=== PATIENT | female | born 1985 | race Caucasian/White ===

== ENCOUNTER 2019-10-11 12:53 | Outpatient (RCR) | payer OTHER, SELFPAY ==
[2019-10-11 14:26] LABS: Hemoglobin 11.4 g/dL (12.0-15.0)
[2019-10-11 14:38] LABS: Glucose 1 Hour PP 50gm Dose 138 mg/dL
[2019-10-11 15:18] LABS: HIV 1/2 Ab P24 Ag Result Negative (Negative)
[2019-10-11 15:24] LABS: Vitamin D 25 Hydroxy 32.6 ng/mL
[2019-10-12] MEDS: RHO(D) IMMUNE GLOBULIN 300 MCG SYRINGE IM (10:30)
== END 2020-01-09 23:59 | disposition home or self-care (01) ==
LOC: ANHLAB 12:53
PROVIDERS: Visit Provider Nurse Practitioner
DX: Z36.89 Encounter for other specified antenatal screening (principal); Z29.13 Encounter for prophylactic Rho(D) immune globulin; O36.0920 Maternal care for other rhesus isoimmunization, second trimester, not applicable or unspecified; Z3A.00 Weeks of gestation of pregnancy not specified
CPT/HCPCS: 36415; 82306; 82947; 85014; 85018; 86703; 90384; 96372; G0432; J2790

== ENCOUNTER 2019-10-31 07:09 | Outpatient (CLI) | payer OTHER, SELFPAY ==
[2019-10-31 08:02] LABS: Glucose Fasting Gestational 86 mg/dL (>/=95)
[2019-10-31 09:28] LABS: Glucose 1 Hour Gest 175 mg/dL (>/=180)
[2019-10-31 10:20] LABS: Glucose 2 Hour Gest 158 mg/dL (>/= 155)
[2019-10-31 11:36] LABS: Glucose 3 Hour Gest 64 mg/dL (>/=140)
== END 2019-10-31 07:10 | disposition home or self-care (01) ==
PROVIDERS: Visit Provider Obstetrics & Gynecology
DX: O99.810 Abnormal glucose complicating pregnancy (principal); Z3A.00 Weeks of gestation of pregnancy not specified
CPT/HCPCS: 36415; 82951; 82952

== ENCOUNTER 2019-11-06 09:32 | Emergency (ER) | payer OTHER, SELFPAY ==
[2019-11-06 09:43] VITALS: BP 118/65; PULSE 99; RESP 20; TEMP 37.1; O2SAT 98
--- NOTE | 2019-11-06 10:03 | ED.URI ---
HPI - URI/Sore Throat General Chief Complaint: Upper Respiratory Infection Stated Complaint: cough/cold Time Seen by Provider: 11/06/19 09:33 Source: patient Mode of arrival: ambulatory Limitations: no limitations History of Present Illness HPI Narrative: A 33 y/o female presents to the ED with c/o flu symptoms. Pt states that on 11/04/19 she started to have a fever and cough. She notes that her daughter was diagnosed with Influenza 2 weeks ago and last week her son had similar symptoms but she never had him tested. Pt reports rhinorrhea, sore throat, body aches, SOB, nausea, and decreased food and liquid intake, but denies vomiting, vaginal bleeding, and vaginal discharge. Her fever was 100.8F degrees this morning and Tylenol does not alleviate her symptoms. She is currently and called her [employer]'s office today and the staff advised the patient to be evaluated in the ED. MD elicited complaint: other (Flu symptoms) Onset (ago): day(s) (2) Consistency: constant Relieving factors: nothing Context: sick contacts Associated symptoms: fever, rhinorrhea, sore throat, cough, shortness of breath, nausea and other (Body aches, decreased food and liquid intake) Treatments prior to arrival: acetaminophen Related Data Home Medications Medication Instructions Recorded Confirmed 11/06/19 aspirin [Aspirin Childrens] 11/06/19 cholecalciferol (vitamin D3) unit PO 11/06/19 Allergies Allergy/AdvReac Type Severity Reaction Status Date / Time No Known Allergies Allergy Verified 11/06/19 09:59 Review of Systems Review of Systems: All systems reviewed & are unremarkable except as noted in HPI and below Constitutional: Constitutional: Reports body ache(s), Reports fever(s) and Reports other (Decreased food and liquid intake) ENT: Reports nasal discharge and Reports sore throat Respiratory: Respiratory: Reports cough and Reports dyspnea Gastrointestinal: Gastrointestinal: Reports nausea and Denies vomiting Genitourinary: Genitourinary: Denies abnormal vaginal bleeding and Denies vaginal discharge [facility] Past Medical History Medical History (Updated 11/06/19 @ 10:39 by Arnaldo Alonso MD) Gestational diabetes Surgical History Surgical History (Updated 11/06/19 @ 10:08 by Kenia Swann) No pertinent past surgical history Social History Social History (Updated 11/06/19 @ 10:09 by Kenia Amador Smoking status: Never smoker Alcohol intake: never Substance use: never Gender identity (if verbalized by the patient): Female Exam Const: General: healthy appearing, no acute distress, well developed and alert Orientation/consciousness: patient oriented x3 Limitations: no limitations HENMT: Head: normocephalic and atraumatic Mouth: Yes moist mucous membranes Chest: Chest palpation & inspection: normal inspection of the chest and no tenderness Resp: Effort & Inspection: normal respiratory effort and able to speak in complete sentences Auscultation: clear to auscultation bilaterally Cardio: Rate: regular rate Rhythm: regular rhythm GI: Other: Gravid with palpable movement, nontender. Neuro: General: patient oriented x3 Speech: normal speech Course Course Emergency Course: IVF and acetaminophen here. D/c with antiemetics and tamiflu. Vital Signs Vital signs: Vital Signs Temperature 98.8 F 11/06/19 09:43 Pulse Rate 99 11/06/19 09:43 Respiratory Rate 20 11/06/19 09:43 Blood Pressure 118/65 11/06/19 09:43 Pulse Oximetry 98 11/06/19 09:43 Temperature 98.8 F 11/06/19 09:43 Pulse Rate 94 11/06/19 11:39 Respiratory Rate 20 11/06/19 11:39 Blood Pressure 109/62 11/06/19 11:39 Pulse Oximetry 98 11/06/19 11:39 MDM - URI/Sore Throat Lab Data Labs: Lab Results 11/06/19 Range/Units 10:48 POC Capillary Glucose 77 (65-105) mg/dl Influenza A Screen Negative Reference Range: Negative Influenza B Screen
[2019-11-06] MEDS: ACETAMINOPHEN 500 MG TABLET 1000 MG PO (10:41)
[2019-11-06] MEDS: SODIUM CHLORIDE 0.9% IV 1,000 ML 999 ML IV CONT (10:42)
[2019-11-06 10:50] LABS: Glucose Point of Care 77 (65-105)
[2019-11-06 10:53] VITALS: O2SAT 98
[2019-11-06 11:39] VITALS: BP 109/62; PULSE 94; RESP 20; O2SAT 98
== END 2019-11-06 11:42 | disposition home or self-care (01) ==
PROVIDERS: Emergency Provider Emergency Medicine
DX: J10.1 Influenza due to other identified influenza virus with other respiratory manifestations (principal)
CPT/HCPCS: 87804; 99283; A9270; J7030

== ENCOUNTER 2019-12-28 05:00 | Inpatient (IN) | payer OTHER, SELFPAY ==
[2019-12-28] VITALS (67 sets, daily range): BP systolic 71–120; BP diastolic 32–75; PULSE 45–87; RESP 16; TEMP 36.4–37.2; O2SAT 98–100; BMI 29.7
--- NOTE | 2019-12-28 05:00 | LDADM ---
This patient, Anahi Rankin, was admitted to Labor/Delivery/Recovery 103 on 12/28/19 at 05:00. Plans for labor, pain management and were discussed with patient. Patient/family oriented to hospital policies and general routines including ID bracelet, bed and alarms, visiting hours, pain management, procedures, bathroom and other care routines, personal items, smoking policy, room service/diet and guest tray routines, infant security routines, and visiting hours. Patient/Family are encouraged to report perceived risks to care and to ask questions if they do not understand what they are told or what they should do. See OBIX for further documentation.
[2019-12-28 05:38] LABS: Glucose Point of Care 117 (65-105)
[2019-12-28 05:43] LABS: Eosinophils Absolute Auto 0.1 K/mm3 (0-0.3); Hematocrit 35.8 % (37.0-47.0); Hemoglobin 11.8 g/dL (12.0-15.0); Immature Granulocyte Absolute 0.03 K/mm3 (0.00-0.031); Immature Granulocyte Percent A 0.4 % (0-0.5); Lymphocytes Absolute Auto 1.73 K/mm3 (0.9-3.2); Lymphocytes Percent Auto 24.5 % (18.3-44.2); Mean Platelet Volume 10.4 fl (7.4-10.4); Monocytes Absolute Auto 0.4 K/mm3 (0.1-0.6); Monocytes Percent Auto 5.9 % (2.6-8.5); Neutrophils Absolute Auto 4.8 K/mm3 (1.3-6.7); Neutrophils Percent Auto 68.2 % (45.5-73.1); Platelet Count Result 174 k/mm3 (150-375); Red Blood Count 3.81 M/mm3 (4.2-5.4); Red Cell Distribution Width 12.7 % (11.5-14.5); White Blood Count 7.1 K/mm3 (4.5-10.0)
[2019-12-28] MEDS: AMPICILLIN 2 GM/NS 100 ML 2 GM/100 ML BAG IVPB (05:47)
[2019-12-28] MEDS: OXYTOCIN 30 UNITS/NS 500 ML 30 UNITS/500 ML BAG IV CONT (05:47)
[2019-12-28] MEDS: LACTATED RINGERS 1,000 ML 125 ML IV CONT ×2 (05:48→08:52)
[2019-12-28] MEDS: AMPICILLIN 1 GM/NS 50 ML 1 GM/50 ML BAG IVPB (09:44)
[2019-12-28 10:48] LABS: Glucose Point of Care 62 (65-105)
--- NOTE | 2019-12-28 12:17 | PM.OBPRVD ---
OB - Delivery Note Procedure Delivery date: 12/28/19 Procedure: events: Gestational Diabetes Intrapartal events: None Induction method: AROM and per pitocin protocol Delivery monitor: external FHT and external uterine Route of delivery: Laceration description: None Specimen: Yes (placenta) Estimated blood loss (mL): 150 Anesthesia type: Epidural Disposition: floor [place] Baby Weeks of gestation at delivery: 39 Infant gender: Male presentation: vertex Placenta delivery description: Spontaneous cord vessel description: 3 Vessels score one minute: 9 score five minutes: 9
--- NOTE | 2019-12-28 12:18 | PM.OBDSVD ---
DS: Diagnosis Discharge Diagnosis (1) 39 weeks gestation of : Code(s): Z3A.39 - 39 weeks gestation of Status: Acute (2) GDM, class A1: Code(s): O24.410 - Gestational diabetes mellitus in , diet controlled Status: Acute (3) (normal spontaneous vaginal delivery): Code(s): O80 - Encounter for full-term uncomplicated delivery Status: Acute OB - DS: Summary OB Procedures : NST and Ultrasound OB Procedures Intrapartum: Spontaneous Vag Delivery OB Procedures: : None Peripartum Data Infant Delivery Method: Natural Vaginal Laceration description: None complications: none Status at Discharge Functional status at discharge: independent ambulation Overall status at discharge: patient is progressing back to baseline Time Spent with Patient Time attestation: Total time spent providing and/or coordinating discharge services: DS: Data Data Completed and Pending Labs on day of discharge: Labs from last 24 hours 12/28/19 12/28/19 12/28/19 10:45 05:34 05:34 WBC RBC Hgb Hct MCV MCH MCHC RDW Plt Count MPV Immature Gran % (Auto) Neut % (Auto) Lymph % (Auto) [place] % (Auto) Eos % (Auto) Baso % (Auto) Lymph # (Auto) [place] # (Auto) Eos # (Auto) Baso # (Auto) Abs Immat Gran (auto) Absolute Neuts (auto) Absolute Nucleated RBC Nucleated RBC % POC Capillary Glucose 62 L RPR Pending Blood Type A Negative Antibody Screen Negative 12/28/19 12/28/19 05:34 05:32 WBC 7.1 RBC 3.81 L Hgb 11.8 L Hct 35.8 L MCV 94.0 MCH 31.0 MCHC 33.0 RDW 12.7 Plt Count 174 MPV 10.4 Immature Gran % (Auto) 0.4 Neut % (Auto) 68.2 Lymph % (Auto) 24.5 [place] % (Auto) 5.9 Eos % (Auto) 1.0 Baso % (Auto) 0.0 L Lymph # (Auto) 1.73 [place] # (Auto) 0.4 Eos # (Auto) 0.1 Baso # (Auto) 0.0 Abs Immat Gran (auto) 0.03 Absolute Neuts (auto) 4.8 Absolute Nucleated RBC 0.0 Nucleated RBC % 0.0 POC Capillary Glucose 117 H RPR Blood Type Antibody Screen Discharge Plan Discharge Attending physician on discharge: Sharon Johnson Discharging Clinician: Sharon Johnson Anticipated Discharge Date/Time: 12/30/19 07:19 Patient Disposition: Home, Self-Care Activity: pelvic rest Diet: regular Patient Instructions: Antibiotic Form Stand Alone Forms: General Discharge Information Follow-up/Referrals: Sharon Johnson MD [Physician] - 6 Weeks Discharge Medications: Continued cholecalciferol (vitamin D3) 5,000 unit Tablet,Disintegrating 5,000 unit PO WEEKLY RF: 0 1 tablet PO DAILY RF: 0 Discontinued aspirin [Aspirin Childrens] 81 mg Tablet,Chewable 1 tablet PO DAILY RF: 0 ondansetron 4 mg tablet,disintegrating 4 mg PO Q6H PRN (Reason: nausea and vomiting) Qty: 10 RF: 0 Date of admission: 12/28/19 05:00 Primary Care Provider: UNKNOWN,DOCTOR Admitting Provider: Sharon Johnson Attending physician on admission: Sharon Johnson Condition: Stable
--- NOTE | 2019-12-28 12:21 | WPDOBADMIT ---
Obstetrics - Admit Note Admission Note: record reviewed. No pertinent additions to the history and/or any subsequent changes in the physical findings that are not consistent with the expected course of the were found. Additions to the history and/or subsequent changes in the physical findings follow. Here for MIL for GDMA1. AROM with clear fluid from Dr. Dumont at that time she was /-2. complete on my arrival
[2019-12-28] MEDS: BENZOCAINE 20% AER SPR (*SP) 56 GM CAN 1 SPRAY TOPICAL (13:07)
[2019-12-28 13:36] LABS: Rapid Plasma Reagin Non-Reactive (NonReactive)
--- NOTE | 2019-12-28 15:10 | PC.NURSE ---
Patient transferred to post room #289 per wheelchair from labor and delivery. Support person present. Oriented to unit, room, information board, rooming in, admission packet and security measures. Patient verbalizes understanding.
[2019-12-28] MEDS: DOCUSATE SODIUM 100 MG CAPSULE PO (16:37)
[2019-12-28] MEDS: IBUPROFEN 600 MG TABLET PO ×2 (16:37→23:35)
--- NOTE | 2019-12-28 20:00 | PC.NURSE ---
Patient viewed the discharge video Mother & Baby Care, The First Two Weeks . Patient was given the opportunity and encouraged to ask questions. Patient verbalized understanding of information shared and has been given the mother/baby guide for home reference.
[2019-12-29] MEDS: IBUPROFEN 600 MG TABLET PO ×3 (04:55→19:37)
[2019-12-29 05:38] LABS: Hematocrit 30.9 % (37.0-47.0); Hemoglobin 9.9 g/dL (12.0-15.0)
[2019-12-29 08:00] VITALS: BP 100/63; PULSE 56; RESP 18; TEMP 36.5; O2SAT 100
[2019-12-29] MEDS: MULTIVIT/MIN/PREN/FOL AC/IRON TABLET 1 TAB PO (08:09)
[2019-12-29] MEDS: POLYSACCHARIDE IRON COMPLEX 150 MG CAPSULE PO ×2 (08:09→17:06)
[2019-12-29] MEDS: DOCUSATE SODIUM 100 MG CAPSULE PO ×2 (08:09→17:06)
[2019-12-29] MEDS: WITCH HAZEL 40 PADS 1 PAD TOPICAL (08:10)
[2019-12-29] MEDS: BENZOCAINE 20% AER SPR (*SP) 56 GM CAN 1 SPRAY TOPICAL (08:10)
--- NOTE | 2019-12-29 10:38 | P.PNOB_ITS ---
OB - PN: Subj Subjective Date/time seen: 12/29/19 10:38 Patient comments: no complaints baby status: doing well and nursing well OB - PN: Obj Data Labs CBC & Chem 7: 12/29/19 05:01 Labs: Laboratory Results - last 24 hr 12/28/19 12/28/19 12/29/19 05:34 10:45 05:01 Hgb 9.9 L Hct 30.9 L POC Capillary Glucose 62 L RPR Non-reactive OB - PN A/P Plan day: 1 Plan: routine care Comments: plans condoms until Mirena Time Spent With Patient Time: Total time spent is greater than 50% in coordination of care (as docume nted) at patient's floor/unit and/or counseling patient: Exam : Bimanual exam- vagina & uterus: other (Uterus firm, nt @U)
--- NOTE | 2019-12-29 13:55 | WPDANLDPN2 ---
Anes-Prog Note L&D Date/Time: 12/29/19 13:55 Comfortable throughout: labor and delivery Neuraxial method: epidural Epidural/Spinal procedure site: clean & non-tender Neuro status: Neuro function grossly intact. Cardiovascular status: normal Respiratory status: normal Airway patency: baseline Mental status: baseline Post-Op hydration status: normal Vital Signs: Last Vital Signs Temp 97.7 F 12/29/19 08:00 Pulse 56 L 12/29/19 08:00 Resp 18 12/29/19 08:00 BP 100/63 12/29/19 08:00 Pulse Ox 100 12/29/19 08:00 Patient feedback: Patient satisfied with anesthetic care.
[2019-12-29] MEDS: ACETAMINOPHEN 325 MG TABLET 650 MG PO (17:06)
[2019-12-29 19:30] VITALS: BP 111/67; PULSE 62; RESP 16; TEMP 36.9; O2SAT 100
[2019-12-30] MEDS: IBUPROFEN 600 MG TABLET PO ×2 (03:05→08:45)
[2019-12-30] MEDS: ACETAMINOPHEN 325 MG TABLET 650 MG PO ×2 (03:05→08:46)
[2019-12-30 07:13] VITALS: BP 93/63; PULSE 63; RESP 18; TEMP 36.6
--- NOTE | 2019-12-30 08:30 | PC.NURSE ---
Patient was given the opportunity to view the discharge video Mother & Baby Care, The First Two Weeks and to ask questions. Patient declined viewing the video and has been given the mother/baby guide for home reference.
[2019-12-30] MEDS: BENZOCAINE 20% AER SPR (*SP) 56 GM CAN 1 SPRAY TOPICAL (08:45)
[2019-12-30] MEDS: WITCH HAZEL 40 PADS 1 PAD TOPICAL (08:45)
[2019-12-30] MEDS: POLYSACCHARIDE IRON COMPLEX 150 MG CAPSULE PO (08:46)
[2019-12-30] MEDS: DOCUSATE SODIUM 100 MG CAPSULE PO (08:46)
[2019-12-30] MEDS: MULTIVIT/MIN/PREN/FOL AC/IRON TABLET 1 TAB PO (08:46)
--- NOTE | 2019-12-30 09:51 | PC.NURSE ---
Self care and infant care discharge instructions given including follow up visit date and time. Mother verbalized understanding. No questions or concerns verbalized. Very pleasant and cooperative. at side.
--- NOTE | 2019-12-30 12:39 | PM.OBPNVD ---
OB - PN: Subj Subjective Date/time seen: 12/30/19 12:39 Patient comments: no complaints baby status: doing well [place] feeding status: exclusively breast feeding OB - PN: Obj Data Labs CBC & Chem 7: 12/29/19 05:01 OB - PN A/P Plan day: 2 Plan: routine care and discharge home Comments: plans condoms until Mirena Time Spent With Patient Time: Total time spent is greater than 50% in coordination of care (as documented) at patient's floor/unit and/or counseling patient: Exam : Bimanual exam- vagina & uterus: other (Uterus firm, nt @U)
[2020-01-02 10:01] VITALS: BP 110/69; PULSE 63; RESP 16; TEMP 36.7; O2SAT 99
== END 2019-12-30 13:40 | disposition home or self-care (01) | DRG 807 ==
LOC: ANHLDR 12:20 → ANHOB2 15:38
PROVIDERS: Admitting Provider Obstetrics & Gynecology Gynecology; Visit Provider Obstetrics & Gynecology Gynecology
DX: O24.410 Gestational diabetes mellitus in pregnancy, diet controlled (principal); Z37.0 Single live birth; O99.824 Streptococcus B carrier state complicating childbirth; Z3A.39 39 weeks gestation of pregnancy
CPT/HCPCS: 36415; 85014; 85018; 85025; 86592; 86850; 86900; 86901; A9270; J0290; J2590; J2795; J7120

== ENCOUNTER 2024-02-28 14:07 | Outpatient (CLI) | payer OTHER, SELFPAY ==
--- NOTE | ~2024-02-28 | US_ITS ---
EXAMINATION: US OB transvaginal INDICATION: Viability, size greater than dates TECHNIQUE: Sonography of the pelvis was performed by transabdominal and transvaginal techniques. COMPARISON: None. RESULT: Uterus: 9.4 x 5.7 x 7.6 cm. Anteverted. Homogenous myometrium. Intrauterine gestational sac: Single present. Yolk sac: 0.6 cm. Embryo: Single present. [place] rump length: 1.89 cm, corresponding gestational age 8 weeks, 3 days. Gestational heart rate: present 164 bpm. Subgestational hematoma: Absent . Right ovary: Not visualized. No adnexal mass. Left ovary: Not visualized. No adnexal mass. Pelvis free fluid: None. IMPRESSION: Single, live intrauterine gestation. Estimated Gestational Age: 8 weeks, 3 days by crown rump length. RAYMOND by ultrasound 10/06/2024. Reviewed, dictated and finalized at location K. IMPRESSION: Single, live intrauterine gestation. Estimated Gestational Age: 8 weeks, 3 days by crown rump length. RAYMOND by ultras ound 10/06/2024.
== END 2024-02-28 14:08 ==
LOC: MICIMG 14:08
PROVIDERS: PCP Advanced Practice Midwife; Visit Provider Advanced Practice Midwife
DX: O36.80X0 Pregnancy with inconclusive fetal viability, not applicable or unspecified (principal)
CPT/HCPCS: 76817

== ENCOUNTER 2024-03-06 12:22 | Outpatient (RCR) | payer OTHER, SELFPAY ==
[2024-03-08] MEDS: RHO(D) IMMUNE GLOBULIN 300 MCG/2 ML SYRINGE IM (07:58)
== END 2024-06-04 23:59 | disposition home or self-care (01) ==
LOC: ANHLAB 12:22
PROVIDERS: PCP Advanced Practice Midwife; Visit Provider Obstetrics & Gynecology Gynecology
DX: Z29.13 Encounter for prophylactic Rho(D) immune globulin (principal); O36.0190 Maternal care for anti-D [Rh] antibodies, unspecified trimester, not applicable or unspecified; Z3A.00 Weeks of gestation of pregnancy not specified
CPT/HCPCS: 36415; 85461; 86850; 86900; 86901; 90384; 96372; J2790

== ENCOUNTER 2024-07-20 10:01 | Outpatient (CLI) | payer OTHER, SELFPAY ==
[2024-07-20 10:30] LABS: Glucose Fasting Gestational 84 mg/dL (>/=95)
[2024-07-20 11:58] LABS: Glucose 1 Hour Gest 212 mg/dL (>/=180)
[2024-07-20 13:11] LABS: Glucose 2 Hour Gest 201 mg/dL (>/= 155)
[2024-07-20 14:00] LABS: Glucose 3 Hour Gest 79 mg/dL (>/=140)
== END 2024-07-20 10:02 | disposition home or self-care (01) ==
LOC: ANHLAB 10:02
PROVIDERS: PCP Advanced Practice Midwife; Visit Provider Obstetrics & Gynecology Gynecology
DX: O99.810 Abnormal glucose complicating pregnancy (principal); Z3A.00 Weeks of gestation of pregnancy not specified
CPT/HCPCS: 36415; 82951; 82952

== ENCOUNTER 2024-07-20 13:46 | Outpatient (CLI) | payer OTHER, SELFPAY ==
--- NOTE | ~2024-07-20 | US_ITS ---
US OB follow up DATE: 07/20/2024 14:05 INDICATION: Size greater than dates. anatomy screen and gestational age assessment TECHNIQUE: Real-time imaging and Doppler analysis COMPARISON: 02/28/2024 obstetrical ultrasound; RAYMOND determined from that examination was 10/06/2024 FINDINGS: Live single intrauterine gestation, fetus in transverse lie, head to maternal left. F etal heart rate of 153 bpm. Right anterior placenta, lateral margin 7.7 cm above the internal os. Cervical length is 4.8 cm. Subjectively normal amount of anechoic fluid. Amniotic fluid index measures 12.5 cm. (5th percentile DEENA: 9.4 cm; 95th percentile: 22.8 cm) Biparietal diameter 8.02 cm; 32 weeks 1 day Head circumference 28.71 cm; 31 weeks 4 days Abdominal circumference 25.91 cm; 30 weeks] 5.63 cm; 29 weeks 4 days Composite age by Hadlock formula based upon the current biometrics would be 30 weeks 6 days +/- 2 wee ks 1 day with RAYMOND of 09/22/2024, compared to 10/06/2024 from the first trimester ultrasound estimate. (Third trimester ultrasound estimates of gestational age should not alter the bilateral carol first tr imester ultrasound estimate.) Estimated weight is 1531 +/- 230 g. IMPRESSION: Transverse lie Estimated weight is 1531 +/- 20 30 g Amniotic fluid index: 12.5 cm Reviewed, dictated and finalized at Location A. Reviewed, dictated and finalized at location A.
== END 2024-07-20 13:47 | disposition home or self-care (01) ==
LOC: MICIMG 13:46
PROVIDERS: PCP Advanced Practice Midwife; Visit Provider Advanced Practice Midwife
DX: O36.63X0 Maternal care for excessive fetal growth, third trimester, not applicable or unspecified (principal); Z3A.30 30 weeks gestation of pregnancy
CPT/HCPCS: 76816

== ENCOUNTER 2024-08-27 10:25 | Outpatient (CLI) | payer OTHER, SELFPAY ==
--- NOTE | ~2024-08-27 | US_ITS ---
EXAMINATION: US OB follow up DATE: 08/27/2024 10:54 INDICATION: Expected size greater than expected for estimated gestational age TECHNIQUE: Real-time ultrasound of the pelvis was performed. The interpreting radiologist was not pre sent for the study. COMPARISON: None. FINDINGS: There is a single living fetus in breech presentation. The placenta is anterior fundal and not low-l carroll. heart rate is 128 beats per minute (bpm). The amniotic fluid index is 9.3 cm, which is n ormal (5th%-95%: 8.1-24.8 cm at 34 weeks estimated gestational age). The following biometric data were obtained: BPD: 8.7 cm -> 34 weeks 6 days Head circumference: 31.3 cm -> 3 weeks 50 days Abdominal circumference: 31.0 cm -> 34 weeks 6 days Femur length: 6.6 cm -> 34 weeks 0 days These measurements are concordant. Head circumference to abdominal circumference ratio: 1.01 (normal range 0.9-1.11). Estimated weight: 2482 g (+/-) 372 g or 5 lbs. 8 oz. (+/-) 13 oz. IMPRESSION: 1. Single living fetus in breech presentation with heart rate of 128 bpm. 2. Normal amniotic fluid index of 9.3 cm. 3. Estimated weight is 56th percentile by Hadlock criteria when 10/06/2024 is used as the estima cris date of delivery (RAYMOND). Please correlate with clinical information or earlier ultrasounds for mos t accurate RAYMOND. Reviewed, dictated and finalized at location A. N BRAKER IMPRESSION: 1. Single living fetus in breech presentation with heart rate of 128 bpm. 2. Normal amniotic fluid index of 9.3 cm. 3. Estimated weight is 56th percentile by Hadlock criteria when 10/06/2024 is used as the estimated date of delivery (RAYMOND). Please correlate with clinica l information or earlier ultrasounds for most accurate RAYMOND.
== END 2024-08-27 10:26 | disposition home or self-care (01) ==
PROVIDERS: PCP Advanced Practice Midwife; Visit Provider Advanced Practice Midwife
DX: O36.63X0 Maternal care for excessive fetal growth, third trimester, not applicable or unspecified (principal); Z3A.00 Weeks of gestation of pregnancy not specified
CPT/HCPCS: 76816

== ENCOUNTER 2024-09-17 09:27 | Outpatient (CLI) | payer OTHER, SELFPAY ==
[2024-09-17] MEDS: TERBUTALINE SULFATE 1 MG/ML VIAL 0.25 MG SUB-Q (10:03)
[2024-09-17 10:16] VITALS: BP 118/75; PULSE 73
== END 2024-09-17 10:55 | disposition home or self-care (01) ==
LOC: ANHOBOP 09:54 → ANHOBPP 09:55
PROVIDERS: PCP Advanced Practice Midwife; Visit Provider Obstetrics & Gynecology Gynecology
DX: O32.1XX0 Maternal care for breech presentation, not applicable or unspecified (principal); Z3A.00 Weeks of gestation of pregnancy not specified
CPT/HCPCS: 59412; 99199; J3105

== ENCOUNTER 2024-09-24 19:36 | Observation (INO) | payer OTHER, SELFPAY ==
[2024-09-24 19:52] VITALS: BP 131/68; PULSE 81; BMI 33.4
--- NOTE | 2024-09-24 19:52 | OBADM ---
This patient, Anahi Rankin, admitted to the OB room OB Post 116 for observation. Patient/family oriented to hospital policies and general routines including ID bracelet, bed and alarms, visiting hours, pain management, procedures, bathroom and other care routines, personal items, smoking policy, room service/diet, and visiting hours. Patient/Family are encouraged to report perceived risks to care and to ask questions if they do not understand what they are told or what they should do.
[2024-09-24 20:00] VITALS: BP 118/69; PULSE 83; TEMP 36.6
[2024-09-24] MEDS: ONDANSETRON INJ 4 MG/2 ML VIAL IV PUSH (20:30)
[2024-09-24] MEDS: DEXTROSE 5%/LACTATED RINGERS 1,000 ML 999 ML IV CONT (20:31)
[2024-09-24] MEDS: LOPERAMIDE HCL 2 MG CAPSULE PO ×2 (20:32→21:29)
[2024-09-24 21:23] LABS: Add Urine Microscopic? YES; Appearance Urine Cloudy (Clear); Bacteria Urine Rare /hpf; Bilirubin Urine Negative (Negative); Blood Urine Negative (Negative); Color Urine Yellow (Yellow); Glucose Urine UA 3+ mg/dL (Negative); Ketones Urine 3+ mg/dL (Negative); Leukocyte Esterase Ur Negative LEU/UL (Negative); Nitrate Urine Negative (Negative); Protein Urine 1+ mg/dL (Negative); RBC Urine 0-2 /hpf (0-2); Specific Grav Ur 1.029 (1.001-1.035); Squamous Epithelial Cell Urine Moderate /hpf (Few); WBC Urine 0-5 /hpf (0-3); pH Urine 5.5 (5.0-9.0)
[2024-09-24] MEDS: LACTATED RINGERS 1,000 ML 150 ML IV CONT (21:27)
--- NOTE | 2024-09-27 03:24 | PM.OBTRLD ---
OB - Triage/Final Diagnosis Visit Information Reason for evaluation: threatened labor and other ( nausea and vomiting and diarrhea) Comments/Additional reasons for admission: I have assessed the risk for this patient, Anahi Berkley Chucho, and determined that she would benefit from observation care. Evaluation Laboratory results: Laboratory Tests 09/24/24 21:07 Urine Color Yellow Urine Appearance Cloudy H Urine pH 5.5 Ur Specific [place] 1.029 Urine Protein 1+ H Urine Glucose (UA) 3+ H Urine Ketones 3+ H Ur Blood (Man) Negative Urine Nitrate Negative Urine Bilirubin Negative Urine Urobilinogen 1.0 Leukocyte Esterase Rfl Negative Urine RBC 0-2 Urine WBC 0-5 Ur Squamous Epith Cells Moderate Urine Bacteria Rare Urine Casts 3-5
== END 2024-09-25 00:12 | disposition home or self-care (01) ==
PROVIDERS: Admitting Provider Obstetrics & Gynecology Gynecology; Visit Provider Obstetrics & Gynecology Gynecology
DX: O47.1 False labor at or after 37 completed weeks of gestation (principal); O21.2 Late vomiting of pregnancy; O26.893 Other specified pregnancy related conditions, third trimester; Z3A.38 38 weeks gestation of pregnancy
CPT/HCPCS: 81001; 96361; 96374; A9270; G0378; G0379; J2405; J7120; J7121

== ENCOUNTER 2024-09-29 18:24 | Observation (INO) | payer OTHER, SELFPAY ==
[2024-09-29 20:30] VITALS: BP 117/65; PULSE 60
[2024-09-29 20:44] VITALS: BMI 33.7
--- NOTE | 2024-09-29 20:45 | OBADM ---
This patient, Anahi Rankin, admitted to the OB room Labor/Delivery/Recovery 106 for observation. Patient/family oriented to hospital policies and general routines including ID bracelet, bed and alarms, visiting hours, pain management, procedures, bathroom and other care routines, personal items, smoking policy, room service/diet, and visiting hours. Patient/Family are encouraged to report perceived risks to care and to ask questions if they do not understand what they are told or what they should do.
--- NOTE | 2024-09-29 20:51 | PC.NURSE ---
Call recieved from Dr. Castilol 2042. Reported Pt c/o irregular ctx since 4 pm, pt history of version on 09/17, GDM and AMA. SVE, FHR, CTX and Vitals. Pt states she feels comfortable going home, scheduled induction on Tuesday. Order to discharge pt home undelivered.
--- NOTE | 2024-09-29 20:53 | PC.NURSE ---
Pt discharged home undelivered in stable condition per order from Dr. Castillo. Discharge instructions explained to pt and given, all questions and concerns answered. Pt ambulated out of unit with all belongings, S.O @ pt side.
--- NOTE | 2024-10-15 11:39 | PM.OBTRLD ---
OB - Triage/Final Diagnosis Visit Information Comments/Additional reasons for admission: I have assessed the risk for this patient, Anahi Rankin, and determined that she would benefit from observation care. Final Diagnosis (1) False labor: Code(s): O47.9 - False labor, unspecified Status: Acute
== END 2024-09-29 20:55 | disposition home or self-care (01) ==
PROVIDERS: Admitting Provider Obstetrics & Gynecology; Visit Provider Obstetrics & Gynecology
DX: O47.1 False labor at or after 37 completed weeks of gestation (principal); Z3A.38 38 weeks gestation of pregnancy
CPT/HCPCS: G0378; G0379

== ENCOUNTER 2024-10-01 05:56 | Inpatient (IN) | payer OTHER, SELFPAY ==
[2024-10-01] VITALS (88 sets, daily range): BP systolic 104–144; BP diastolic 49–83; PULSE 55–99; RESP 16; TEMP 36.2–36.8; O2SAT 97–100; BMI 33.7
[2024-10-01 06:51] LABS: Basophils Percent Auto 0.3 % (0.2-1.2); Eosinophils Percent Auto 0.7 % (0-4.4); Hematocrit 34.4 % (37.0-47.0); Hemoglobin 11.4 g/dL (12.0-15.0); Immature Granulocyte Absolute 0.02 K/mm3 (0.00-0.031); Immature Granulocyte Percent A 0.3 % (0-0.5); Lymphocytes Absolute Auto 1.61 K/mm3 (0.9-3.2); Lymphocytes Percent Auto 27.4 % (18.3-44.2); Mean Corpuscular HGB Conc 33.1 g/dl (32-36); Mean Corpuscular Hemoglobin 30.6 pg (26-34); Mean Corpuscular Volume 92.5 fl (80-100); Mean Platelet Volume 10.7 fl (7.4-10.4); Monocytes Absolute Auto 0.3 K/mm3 (0.1-0.6); Monocytes Percent Auto 5.5 % (2.6-8.5); Neutrophils Absolute Auto 3.9 K/mm3 (1.3-6.7); Neutrophils Percent Auto 65.8 % (45.5-73.1); Platelet Count Result 193 k/mm3 (150-375); Red Blood Count 3.72 M/mm3 (4.2-5.4); Red Cell Distribution Width 12.5 % (11.5-14.5); White Blood Count 5.9 K/mm3 (4.5-10.0)
--- NOTE | 2024-10-01 07:23 | P.PNAN_ITS ---
Anes - Eval Pre Procedure Procedure: labor epidural Date/Time: 10/01/24 07:23 Preop Diagnosis: labor pain Pre Op Diagnosis: Labor Patient Data Age: 38 Gender: F Height: Weight: Last Vital Signs Pulse 63 10/01/24 07:15 BP 115/66 10/01/24 07:15 Allergies Allergy/AdvReac Type Severity Reaction Status Date / Time No Known Allergies Allergy Verified 09/24/24 19:56 Home Medications ?Medication ?Instructions ?Recorded ?Confirmed ?Type 1 tablet PO DAILY 11/06/19 09/24/24 History cholecalciferol (vitamin D3) 125 3,000 unit PO DAILY 11/06/19 09/24/24 History mcg (5,000 unit) disintegrating tablet aspirin 81 mg capsule 81 mg PO DAILY 09/14/24 09/24/24 History ondansetron 4 mg disintegrating 4 mg PO Q6H PRN nausea and 09/24/24 Rx tablet vomiting #10 tabs Laboratory Tests 10/01/24 06:37 WBC 5.9 K/mm3 (4.5-10.0) RBC 3.72 L M/mm3 (4.2-5.4) Hgb 11.4 L g/dL (12.0-15.0) Hct 34.4 L % (37.0-47.0) MCV 92.5 fl (80-100) MCH 30.6 pg (26-34) MCHC 33.1 g/dl (32-36) RDW 12.5 % (11.5-14.5) Plt Count 193 k/mm3 (150-375) MPV 10.7 H fl (7.4-10.4) Immature Gran % (Auto) 0.3 % (0-0.5) Neut % (Auto) 65.8 % (45.5-73.1) Lymph % (Auto) 27.4 % (18.3-44.2) [place] % (Auto) 5.5 % (2.6-8.5) Eos % (Auto) 0.7 % (0-4.4) Baso % (Auto) 0.3 % (0.2-1.2) Lymph # (Auto) 1.61 K/mm3 (0.9-3.2) [place] # (Auto) 0.3 K/mm3 (0.1-0.6) Eos # (Auto) 0.0 K/mm3 (0-0.3) Baso # (Auto) 0.0 K/mm3 (0.0-0.1) Abs Immat Gran (auto) 0.02 K/mm3 (0.00-0.031) Absolute Neuts (auto) 3.9 K/mm3 (1.3-6.7) Absolute Nucleated RBC 0.000 K/mm3 (0.0-0.012) Nucleated RBC % 0.0 % (0.0-0.2) RPR Pending HIV 1&2 Ab/P24 Ag 4thGn Pending Patient hx anesthesia problems: none Family hx anesthesia problems: none Results Review: All pre-operative results and documents have been reviewed as part of the pre- operative evaluation. FORMERLY [facility], [facility] Past Medical History Medical History Gestational diabetes Surgical History Surgical History No pertinent past surgical history Family History Family History Mother Breast cancer Father Diabetes mellitus Social History Social History Smoking status: Never smoker Alcohol intake: never Substance use: never Gender identity (if verbalized by the patient): Female Spiritual care concerns: No Exam Day of Procedure 10/01/24 07:23 Patient weight: overweight Heart: regular rate and rhythm Lungs: clear to auscultation Airway: Mallampati scale class II Neurological: alert and oriented
[2024-10-01] MEDS: LACTATED RINGERS 1,000 ML 125 ML IV CONT (07:25)
[2024-10-01] MEDS: OXYTOCIN 30 UNITS/NS 500 ML 30 UNITS/500 ML BAG IV CONT (07:26)
--- NOTE | 2024-10-01 07:36 | LDADM ---
This patient, Anahi Rankin, was admitted to Labor/Delivery/Recovery 108 on 10/01/24 at 05:56. Plans for labor, pain management and were discussed with patient. Patient/family oriented to hospital policies and general routines including ID bracelet, bed and alarms, visiting hours, pain management, procedures, bathroom and other care routines, personal items, smoking policy, room service/diet and guest tray routines, security routines, and visiting hours. Patient/Family are encouraged to report perceived risks to care and to ask questions if they do not understand what they are told or what they should do. See OBIX for further documentation.
[2024-10-01 07:41] LABS: HIV 1/2 Ab P24 Ag Result Negative (Negative)
[2024-10-01 08:06] LABS: Glucose Point of Care 73 mg/dl (65-105)
--- NOTE | 2024-10-01 08:06 | WPDOBADMIT ---
Obstetrics - Admit Note Admission Note: record reviewed. No pertinent additions to the history and/or any subsequent changes in the physical findings that are not consistent with the expected course of the were found. Additions to the history and/or subsequent changes in the physical findings follow. Here with GDMA1 for MIL. s/p external version. Cervix 1-2/50/-2 anterior, Vertex. Plan pitocin. FHTs cat. I
[2024-10-01 08:27] LABS: Rapid Plasma Reagin Non-Reactive (NonReactive)
[2024-10-01 11:59] LABS: Glucose Point of Care 77 mg/dl (65-105)
[2024-10-01 14:13] LABS: Glucose Point of Care 61 mg/dl (65-105)
--- NOTE | 2024-10-01 15:17 | PM.OBPRVD ---
OB - Vaginal Delivery Note Procedure Delivery date: 10/01/24 Events: Breech Presentation (s/p external cephalic version at 36 wks) and Gestational Diabetes (GDMA1) Induction method: AROM and Per Pitocin Protocol Delivery monitor: External FHT and External Uterine Route of delivery: Episiotomy description: None Laceration Description: None Specimen: No Quantitative Blood Loss (ml): 50 Anesthesia type: Epidural Disposition: Floor Complications: No immediate complications Baby Date of : 10/01/24 Gestational Age by Date: 39 Infant gender: Female presentation: vertex position: Right Occiput Anterior Placenta delivery description: Spontaneous Cord Vessel Description: 3 Vessels and Delayed Cord Clamping score one minute: 8 score five minutes: 9
--- NOTE | 2024-10-01 15:19 | PM.OBDSVD ---
DS: Admitting Diagnosis Discharge Date 10/03/24 Admitting Diagnosis IUP 39 wks GDMA1 s/p external cephalic version DS: Discharge Diagnosis Discharge Diagnosis (1) (normal spontaneous vaginal delivery): Code(s): O80 - Encounter for full-term uncomplicated delivery Status: Acute OB - DS: Summary OB Procedures : Ultrasound, External version and Other (Diabetes managment) OB Procedures Intrapartum: Spontaneous Vag Delivery OB Procedures: : None Peripartum Data Delivery Method: Natural Vaginal Laceration Description: None Episiotomy description: None complications: none Status at Discharge Functional status at discharge: independent ambulation Overall status at discharge: patient is progressing back to baseline Time Spent with Patient Time attestation: Total time spent providing and/or coordinating discharge services: DS: Data Data Completed and Pending Labs on day of discharge: Labs from last 24 hours 10/01/24 10/01/24 10/01/24 14:08 11:52 08:01 WBC RBC Hgb Hct MCV MCH MCHC RDW Plt Count MPV Immature Gran % (Auto) Neut % (Auto) Lymph % (Auto) [place] % (Auto) Eos % (Auto) Baso % (Auto) Lymph # (Auto) [place] # (Auto) Eos # (Auto) Baso # (Auto) Abs Immat Gran (auto) Absolute Neuts (auto) Absolute Nucleated RBC Nucleated RBC % POC Capillary Glucose 61 L 77 73 RPR HIV 1&2 Ab/P24 Ag 4thGn Blood Type Antibody Screen 10/01/24 06:37 WBC 5.9 RBC 3.72 L Hgb 11.4 L Hct 34.4 L MCV 92.5 MCH 30.6 MCHC 33.1 RDW 12.5 Plt Count 193 MPV 10.7 H Immature Gran % (Auto) 0.3 Neut % (Auto) 65.8 Lymph % (Auto) 27.4 [place] % (Auto) 5.5 Eos % (Auto) 0.7 Baso % (Auto) 0.3 Lymph # (Auto) 1.61 [place] # (Auto) 0.3 Eos # (Auto) 0.0 Baso # (Auto) 0.0 Abs Immat Gran (auto) 0.02 Absolute Neuts (auto) 3.9 Absolute Nucleated RBC 0.000 Nucleated RBC % 0.0 POC Capillary Glucose RPR Non-reactive HIV 1&2 Ab/P24 Ag 4thGn Negative Blood Type A Negative Antibody Screen Negative Discharge Plan Discharge Attending physician on discharge: Sharon Johnson Discharging Clinician: Sharon Johnson Anticipated Discharge Date/Time: 10/03/24 15:20 Patient Disposition: Home, Self-Care Activity: no shower and pelvic rest Diet: regular Patient Instructions: Antibiotic Form Patient Language: Armenian Stand Alone Forms: General Discharge Information Follow-up/Referrals: Sharon Johnson MD [Physician] - 6 Weeks Discharge Medications: New norethindrone (contraceptive) 0.35 mg tablet 0.35 mg PO DAILY Qty: 28 0RF Rx Instructions: start in three weeks Continued cholecalciferol (vitamin D3) 5,000 unit Tablet,Disintegrating 3,000 unit PO DAILY Discontinued ondansetron 4 mg tablet,disintegrating 4 mg PO Q6H PRN (Reason: nausea and vomiting) Qty: 10 0RF aspirin 81 mg capsule 81 mg PO DAILY No Action 1 tablet PO DAILY Date of admission: 10/01/24 05:56 Primary Care Provider: UNKNOWN,DOCTOR Admitting Provider: Sharon Johnson Attending physician on admission: Sharon Johnson Condition: Stable
[2024-10-01] MEDS: OXYTOCIN 30 UNITS/NS 500 ML 30 UNITS/500 ML BAG 125 UNITS IV CONT (15:38)
[2024-10-01] MEDS: WITCH HAZEL 40 PADS 1 PAD TOPICAL (17:49)
[2024-10-01] MEDS: BENZOCAINE 20% AER SPR (*SP) 56 GM CAN 1 SPRAY TOPICAL (17:49)
--- NOTE | 2024-10-01 18:50 | OBPPTRN ---
Patient transferred to post room #290 via wheelchair. Support person present. Oriented to unit, room, information board, rooming in, admission packet and security measures. Patient verbalizes understanding.
[2024-10-01] MEDS: IBUPROFEN 600 MG TABLET PO (19:55)
[2024-10-02 00:25] VITALS: BP 106/69; PULSE 57; RESP 16; TEMP 36.6; O2SAT 95
[2024-10-02 04:48] VITALS: BP 100/64; PULSE 54; RESP 16; TEMP 36.6; O2SAT 96
[2024-10-02 05:06] LABS: Hematocrit 30.7 % (37.0-47.0); Hemoglobin 10.3 g/dL (12.0-15.0)
[2024-10-02] MEDS: IBUPROFEN 600 MG TABLET PO ×3 (07:17→19:29)
[2024-10-02] MEDS: MULTIVIT/MIN/PREN/FOL AC/IRON TABLET 1 TAB PO (07:18)
[2024-10-02] MEDS: DOCUSATE SODIUM 100 MG CAPSULE PO ×2 (07:18→15:39)
--- NOTE | 2024-10-02 07:50 | P.PNOB_ITS ---
OB - PN: Subj Subjective Date/time seen: 10/02/24 07:50 Patient comments: no complaints and pain well controlled baby status: doing well OB - PN: Obj Data Labs 10/02/24 04:46 Labs: Laboratory Results - last 24 hr 10/01/24 10/01/24 10/01/24 06:37 08:01 11:52 Hgb Hct POC Capillary Glucose 73 77 RPR Non-reactive Blood Type A Negative Antibody Screen Negative 10/01/24 10/02/24 14:08 04:46 Hgb 10.3 L Hct 30.7 L POC Capillary Glucose 61 L RPR Blood Type Antibody Screen OB - PN A/P Plan day: 1 Plan: routine care and other (plans micronor until IUD) Time Spent With Patient Time: Total time spent is greater than 50% in coordination of care (as documented) at patient's floor/unit and/or counseling patient: Exam 2 : Bimanual exam- vagina & uterus: other (Uterus firm, nt @U)
--- NOTE | 2024-10-02 07:56 | WPDANLDPN2 ---
Anes-Prog Note L&D Date/Time: 10/02/24 07:56 Comfortable throughout: labor and delivery Neuraxial method: epidural Epidural/Spinal procedure site: tender Neuro status: Neuro function grossly intact. Cardiovascular status: normal Respiratory status: normal Airway patency: baseline Mental status: baseline Post-Op hydration status: normal Vital Signs: Last Vital Signs Temp 36.6 C 10/02/24 04:48 Pulse 54 L 10/02/24 04:48 Resp 16 10/02/24 04:48 BP 100/64 10/02/24 04:48 Pulse Ox 96 10/02/24 04:48 O2 Del Method Room Air 10/02/24 07:26 Pain score (VAS): 1 Post-procedural complaints: none Patient feedback: Patient satisfied with anesthetic care.
[2024-10-02 08:15] VITALS: BP 116/78; PULSE 55; RESP 18; TEMP 36.4; O2SAT 98
--- NOTE | 2024-10-02 15:51 | PC.NURSE ---
1220. Mother verbalizes she is able to independently latch infant with appropriate positioning and alignment. She denies any nipple discomfort and is responsively . is currently meeting outcomes for weight, output, jaundice, blood sugar and feeding frequencies of 8-12 times in 24 hours. Mother declines any additional assistance or education at this time. Mother is encouraged to call for assistance if her doesn?t latch, pain with latching, questions or concerns. Mother voiced understanding of information shared along with the mom/baby guide for an additional resource. Mother declines the need for a WIC referral at this time. Reported to the Primary RN.
[2024-10-02 19:31] VITALS: BP 109/68; PULSE 71; RESP 18; TEMP 36.4; O2SAT 96
[2024-10-03] MEDS: MULTIVIT/MIN/PREN/FOL AC/IRON TABLET 1 TAB PO (07:14)
[2024-10-03] MEDS: DOCUSATE SODIUM 100 MG CAPSULE PO (07:14)
[2024-10-03] MEDS: IBUPROFEN 600 MG TABLET PO (07:14)
[2024-10-03 07:52] VITALS: BP 120/77; PULSE 74; RESP 19; TEMP 36.5; O2SAT 97
--- NOTE | 2024-10-03 08:37 | PC.NURSE ---
Mother is able to independently latch infant with appropriate positioning and alignment. Latch observed by this RN. She denies any nipple discomfort and is responsively . Infant is currently meeting outcomes for weight, output, jaundice, blood sugar and feeding frequencies of 8-12 times in 24 hours. Mother declines any additional assistance or education at this time. Mother is encouraged to call for assistance if her infant doesn?t latch, pain with latching, questions or concerns. Mother voiced understanding of information shared.
[2024-10-04 11:18] VITALS: BP 113/63; PULSE 68; RESP 18; TEMP 36.6; O2SAT 100
--- OUTSIDE RECORDS SUMMARY | 2024-10-07 14:24 | XMS_ITS | Clinical Summary ---
Author Organization [facility] Address [address] [place] [address] Phone Care Team Providers Care Bond Runner Name Role Phone Vitaly Doe MD Primary Care Provider [phone]- [phone] Allergies No known active allergies Medications ibuprofen (MOTRIN) 800 MG Tablet Take 1 Tab by mouth every 6 hours as needed for Pain (for temperature greater than 100.4 F). 30 Tab 2 6 Active Wuvgtvoq-Nfd-Si -FA ( VITAMINS) 0.8 MG Tablet Take 1 Tab by mouth daily for 30 days. 30 Tab 0 6 Active HYDROcodone-pooja taminophen (NORCO) 5-325 MG Tablet Take 1-2 Tabs by mouth every 4 hours as needed for Pain. 20 Tab 0 7 Active Immunizations Immunization Administration Dates Next Due TDAP Vaccine 03/16/2016 Family History Medical History Relation Name Comments Diabetes Father Hypertension Father Heart Disease Maternal Grandfather Breast Cancer Mother Hypertension Mother Miscarriage Sister Relation Name Status Comments Father Maternal Grandfather Mother Sister Social History Tobacco Use Types Packs/Day Years Used Date Smoking Tobacco: Never Alcohol Use Standard Drinks/Week Comments No 0 (1 standard drink = 0.6 oz pur e alcohol) Comments No Sex and Gender Information Value Date Recorded Sex Assigned at Not on file Legal Sex Female 11:42 PM CDT Gender Identity Not on file Sexual Orientation Not on file Last Filed Vital Signs Vital Sign Reading Time Taken Comments Blood Pressure 140/68 01/08/2017 11:22 PM CDT Pulse 69 01/08/2017 11:22 PM CDT Temperature 37.1 ??C (98.7 ??F) 01/08/2017 11:22 PM C DT Respiratory Rate 16 01/08/2017 11:22 PM CDT Oxygen Saturation 97% 01/08/2017 11:22 PM CDT Inhaled Oxygen Concentration - - Weight 79.8 kg (176 lb) 01/08/2017 11:22 PM CDT Height 167.6 cm (5' 6 ) 01/08/2017 11:22 PM CDT Body Mass Index 28.41 01/08/2017 11:22 PM CDT Plan of Treatment Health Maintenance Due Date Last Done Comments Hepatitis C Virus (HCV) Screening 1986 Hepatitis B Immunization (1 of 3 - 19+ 3-dose series) 2005 Pap Smear 12/18/2007 Cervical Cancer Screening (CCS) 2016 HPV/Cotest 2016 Influenza Immunization (#1) 2024 SARS-COV-2 Immunization ( season) 2024 Respiratory Syncytial Virus (RSV) Immunization (Adult) (1 - 1-dose 75+ series) 2061 DTaP/Tdap/Td Immunization Discontinued 03/16/2016 Meningococcal Immunization (ACWY) Aged Out No longer eligible based on patient's age to complete this topic Pneumococcal Immunization Combined Aged Out No longer eligible b ased on patient's age to complete this topic Rotavirus Immunization Aged Out No lo nger eligible based on patient's age to complete this topic Advance Directives * Full Code (Latest Code Status on File) Date Activated Date Inactivated Comments 03/14/2016 12:23 AM 03/16/2016 12:49 PM CPR-Full T reatment: FULL ARREST: Attempt Resuscitation/CPR wit intubation and mechanical ventilation. PRE-ARREST: Use entire range of life support measures to stabilize the patient. Care Teams Bond Runner Relationship Specialty Start Date End Date Vitaly Doe MD [address] [place], [place] [address] PCP - General Internal Medicine 03/15/16
--- OUTSIDE RECORDS SUMMARY | 2024-10-07 14:24 | XMS_ITS | Encounter Summary ---
Author Organization [facility] Address [address] [place] [address] Care Team Providers Care General Store Manager Name Role Phone Unavailable Primary Care Provider Unavailabl e Encounter Details Date Type Department Care Team (Latest Contact Info) Description 03/03/2012 12:20 AM CDT - 03/03/2012 11:59 PM CDT Hospital Encounter [facility] [address] [place] [address] Arnaldo Vargas MD [address] [place], [place] [id number] Surgery General Social History Tobacco Use Types Packs/Day Years Used Date Smoking Tobacco: Never Smokeless Tobacco: Never Alcohol Use Standard Drinks/Week Comments No 0 (1 standard drink = 0.6 oz pur e alcohol) Sex and Gender Information Value Date Recorded Sex Assigned at Not on file Gender Identity Not on file Sexual Orientation Not on file documented as of this encounter H&P Notes * Hiwot Murray MD - 03/02/2012 7:58 PM CDT R3 POSTAL DELIVERY OFFICER History and Physical Pre-Operative Diagnosis: Urinary urgency, frequency, frequent UTI symptoms. Mixed urinary incontinence, myofascial pain. Planned Procedure: cystoscopy with hydrodistention Surgeon: Dr. Vargas HPI: Ms. Anahi Rankin is a 26 y.o., 1, para 1, female who has frequency (q2-3 hours) and nocturia (>1/ night) along with pelvic pressure / left sided pain. It's relieved by urination. Antibiotics help some. It's been occurring for about 1-2 years since the of her 16 month old, starting following a UTI. She's had intermittent UTI's since, as well as urge and stress incontinence with UTIs. She has a sense of incomplete emptying. She denies constipation or fecal incontinence. Review of Systems: A comprehensive review of systems was negative except for: Gastrointestinal: positive for change inbowel habits Genitourinary: positive for frequency, dysuria, nocturia and urinary incontinence Obstetrical History: OB History Grav Para Term Abortions TAB SAB Ect Mult Living 1 1 # Outc Date GA Lbr Ankit/2nd Wgt Sex Del Anes PTL Lv 1 PAR Gynecologic History: LMP 11/24/2011 Past Medical History Diagnosis Date ??? Abnormal Pap smear of cervix ??? Anemia when ??? Bladder infection Past Surgical History Procedure Date ??? Laparoscopy abdomen diagnostic for LLQ pain; ?endometriosis Curent Medications: No current outpatient prescriptions on file. No Known Allergies Social History: History Substance Use Topics ??? Smoking status: Never Smoker ??? Smokeless tobacco: Never Used ??? Alcohol Use: No Family History Problem Relation Age of Onset ??? Diabetes Paternal Grandmother ??? Heart Disease Paternal Grandmother ??? Diabetes Father ??? Heart Disease Father ??? Diabetes Mother ??? Breast Cancer after age 50 or unknown Mother ??? Breast Cancer after age 50 or unknown Maternal Aunt ??? Depression Sister Physical Exam: Post Void Residual: ~0 ml Urine dipstick: danette est- negative, nitrates- negative, blood- negative, protein- negative, other- neg CONSTITUTIONAL GENERAL: well developed, well nourished, well groomed SKIN: Inspected and palpated within normal limits NECK: within normal limits Thyroid - normal HEENT: PERRA with EOMI, throat no lesions; No sclericterus GASTROINTESTINAL: Abdomen - no masses, no rebound; she has some tenderness along left lower quadrant at a discrete point, worse with straight leg raise. LYMPHATICS: Nodes (all that apply) Neck - within normal limits Groin - within normal limits BACK: within normal limits NEUROLOGIC/PSYCHIATRIC: Oriented to - person, place, time Mood/Affect -within normal limits Bulbocavernosus reflex - within normal limits Anal wink - within normal limits Perineal sensation - within normal limits GYNECOLOGIC/GENITOURINARY: External genitalia - within normal limits Urethral meatus - within normal limits Urethra - within normal limits Urethrovesical junction hypermobility - Yes Supine Empty Stress Test - negative Bladder base - tender Vaginal/Pelvic floor support: normal Kegel strength 4/5 Cervix - within normal limits Uterus - within normal limits Adnexa - within normal limits Anus / Perineum - within normal limits MUSCULOSKELETAL: No abdominal wall or vaginal trigger points noted EXTREMITIES: No edema, normal gait. IMPRESSION: Urinary urgency, frequency, frequent UTI symptoms Mixed urinary incontinence Myofascial pain PLAN: Options discussed with patient. Plan to proceed with cystoscopy and hydrodistention for IC diagnosis. Patient also referred to PT for evaluation of ANSELMO. Risks of the surgery, including but not limited to: Infection, bleeding, transfusion (including risks of HIV and Hepatitis), damage to internal organs including bowel, bladder, blood vessels, nerves and ureters; and anesthetic complications. We've also discussed the risks of short or terminal makeup operator taj terization, the success rates of the procedures, as well as the potential need for reoperation or repair. Hiwot Murray MD 03/02/2012 8:07 PM documented in this encounter Plan of Treatment Not on file documented as of this encounter Visit Diagnoses Diagnosis Urinary tract infection, site not specified documented in this encounter
--- OUTSIDE RECORDS SUMMARY | 2024-10-07 14:24 | XMS_ITS | Patient Health Summary ---
Author Organization [facility] Address [address] [place] [address] Care Team Providers Care Translator Deaf Name Role Phone Unavailable Primary Care Provider Unavailabl e Note from [facility],non-owned Affiliates and Associated Physician Practices is amultiple site organization consisting of ambulatory clinics and hospital sitesin [place], [place], [place] and [place]. This disclosure is being madepursuant to the Care Everywhere program and may not contain all information available regarding this patient. Last updated 18.[facility] Allergies No known active allergies Social History Tobacco Use Types Packs/Day Years Used Date Smoking Tobacco: Never Smokeless Tobacco: Never Alcohol Use Standard Drinks/Week Comments No 0 (1 standard drink = 0.6 oz pur e alcohol) Sex and Gender Information Value Date Recorded Sex Assigned at Not on file Gender Identity Not on file Sexual Orientation Not on file Procedures * CULTURE URINE(Performed 12/21/2011) Results * CULTURE URINE (12/21/2011 3:11 PM CDT) Urine Culture Routine Final report [facility] ([employer]) Result 1 No growth [facility] ([facility]ER) 12/21/2011 3:11 PM CDT 12/21/2011 9:45 PM CDT Narrative [facility] ([facility]) - 12/23/2011 3:08 AM CDT Performed at: ??01 - [facility] [address] ??[id number] Redevelopment Manager: Cindi Luis MD, Phone: ??[phone] Arnaldo Vargas MD LAB - MICROBIOLOGY O RDERABLES [facility] ([facility])
--- OUTSIDE RECORDS SUMMARY | 2024-10-07 14:24 | XMS_ITS | Referral Summary ---
Author Organization [facility] Address [address] [place] [address] Care Team Providers Care Editor In Chief Newspaper Name Role Phone Unavailable Primary Care Provider Unavailabl e Source Comments [facility],non-[facility] Affiliates and Associated Physician Practices is amultiple site organization consisting of ambulatory clinics and hospital sitesin [place], [place], [place] and [place]. This disclosure is being madepursuant to the Care Everywhere program and may not contain all information available regarding this patient. Last updated 18.[facility] [employer] Allergies No known active allergies Social History Tobacco Use Types Packs/Day Years Used Date Smoking Tobacco: Never Smokeless Tobacco: Never Alcohol Use Standard Drinks/Week Comments No 0 (1 standard drink = 0.6 oz pur e alcohol) Sex and Gender Information Value Date Recorded Sex Assigned at Not on file Gender Identity Not on file Sexual Orientation Not on file Plan of Treatment Not on file ANAHI DUENAS Personal/Family 1985 [facility] [place] [address]
--- OUTSIDE RECORDS SUMMARY | 2024-10-07 14:24 | XMS_ITS | Clinical Summary ---
Author Organization [facility] Address [address] [place] [address] Care Team Providers Care Fisheries Director Name Role Phone Unavailable Primary Care Provider Unavailabl e Source Comments [facility],non-owned Affiliates and Associated Physician Practices is amultiple site organization consisting of ambulatory clinics and hospital sitesin [place], [place], [place] and [place]. This disclosure is being madepursuant to the Care Everywhere program and may not contain all information available regarding this patient. Last updated 18.[facility] [place] Allergies No known active allergies Family History Medical History Relation Name Comments Diabetes Father Heart Disease Father Breast Cancer after age 50 or unknown Maternal Aunt Breast Cancer after age 50 or unknown Mother Diabetes Mother Diabetes Paternal Grandmother Heart Disease Paternal Grandmother Depression Sister Relation Name Status Comments Father Maternal Aunt Mother Paternal Grandmother Sister Social History Tobacco Use Types Packs/Day Years Used Date Smoking Tobacco: Never Smokeless Tobacco: Never Alcohol Use Standard Drinks/Week Comments No 0 (1 standard drink = 0.6 oz pur e alcohol) Sex and Gender Information Value Date Recorded Sex Assigned at Not on file Gender Identity Not on file Sexual Orientation Not on file Plan of Treatment Health Maintenance Due Date Last Done Comments PAP SMEAR 1986 HIV SCREENING 2001 HEPATITIS C SCREENING 12/12/2004 DTAP/TDAP/TD VACCINES (1 - Tdap) 2005 HEPATITIS B VACCINE (1 of 3 - 19+ 3-dose series) 2005 COVID-19 VACCINE ( - 2023-2 5 season) 2024 INFLUENZA VACCINE (#1) 2024 DEPRESSION SCREENING 09/26/2024 ZOSTER VACCINE (1 of 2) 2036 HIB VACCINE Aged Out No longer eligi ble based on patient's age to complete this topic HPV VACCINE Aged Out No longer eligi ble based on patient's age to complete this topic MENINGOCOCCAL (Group B) VACCINE Aged Out No longer eligible based on patient's age to complete this topic MENINGOCOCCAL VACCINE Aged Out No lai epifanio eligible based on patient's age to complete this topic PNEUMOCOCCAL VACCINE Aged Out No long er eligible based on patient's age to complete this topic ANAHI DUENAS Personal/Family [address] [place] [address] [place] [address]
--- OUTSIDE RECORDS SUMMARY | 2024-10-07 14:25 | XMS_ITS | Encounter Summary ---
Author Organization [facility] Address [address] [email or web address] [address] Phone Care Team Providers Care Animal Husbandry Worker Name Role Phone Vitaly Doe MD Primary Care Provider +1- [phone] Jessica Leonard MD Unavailable +1 [phone] Encounter Details Date Type Department Care Team (Late st Contact Info) Description 11/14/2017 Telephone [facility] [address] [email or web address] [address] Judy Chance LPN Social History Tobacco Use Types Packs/Day Years Used Date Smoking Tobacco: Never Smokeless Tobacco: Never Alcohol Use Standard Drinks/Week Comments No 0 (1 standard drink = 0.6 oz pur e alcohol) Comments No Sex and Gender Information Value Date Recorded Sex Assigned at Not on file Legal Sex Female 1:41 AM THREAD LASTER Gender Identity Not on file Sexual Orientation Not on file 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 file Not on file documented as of this encounter Miscellaneous Notes * Telephone Encounter - Judy Chance LPN - 11/14/2017 9:17 AM THREAD LASTER Normal beauty advisor sent. AD LASTER * Telephone Encounter - Judy Chance LPN - 11/14/2017 9:17 AM THREAD LASTER ----- Message from Jessica Leonard MD sent at 11/13/2017 12:20 PM THREAD LASTER ----- Let Anahi know her vaginal swab was all normal. AD LASTER documented in this encounter Plan of Treatment Not on file documented as of this encounter Visit Diagnoses Not on filedocumented in this encounter Care Teams Animal Husbandry Worker Relationship Specialty Start Date End Date Vitaly Doe MD [address] [place] [address] PCP - General 12/24/16 Jessica Leonard MD [address] [place] [address] Obstetrics and Gynecology 07/15/17 documented as of this encounter
--- OUTSIDE RECORDS SUMMARY | 2024-10-07 14:25 | XMS_ITS | Encounter Summary ---
Author Organization [facility] Address [address] [place] [address] Phone Care Team Providers Care Academic Dean Name Role Phone Nader, Vitaly Ravi MD Primary Care Provider +1- [phone] Jessica Leonard MD Unavailable +1 -[phone] Encounter Details Date Type Department Care Team (Late st Contact Info) Description 07/13/2017 Orders Only [facility] [address] [place] [address] Jessica Leonard MD [address] [place] [address] Social History Tobacco Use Types Packs/Day Years Used Date Smoking Tobacco: Never Smokeless Tobacco: Never Alcohol Use Standard Drinks/Week Comments No 0 (1 standard drink = 0.6 oz pur e alcohol) Comments No Sex and Gender Information Value Date Recorded Sex Assigned at Not on file 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 Gender Identity Not on file Sexual Orientation Not on file Occupation Industry Job Start Date Job End Date Homemaker Not on file Not on file Not on file Thirty-one Not on file Not on file Not on file documented as of this encounter Plan of Treatment Not on file documented as of this encounter Procedures Procedure Name Priority Date/Time Associated Diagnosis Comments HPV MRNA E6/E7 REFLEX HPV 16, 18/45 Routine 07/13/2017 9:32 AM CDT THINPREP IMPLEMENTATION SPECIALIST PAYROLL PAP (IMAGE GUIDED) LIQUID-BASED PREP Routine 07/13/2017 9:32 AM CDT documented in this encounter Results * HPV mRNA E6/E7 REFLEX HPV 16, 18/45 (07/13/2017 9:32 AM CDT) Human papillomavirus RNA, High Risk E6/E7 Not Detected Not Detected [facility] Comment: This test was performed using the APTIMA HPV Assay ([employer] ? This assay detects E6/E7 viral messenger RNA (mRNA) from 14 high-risk HPV types (16,18,31,33,35,39,45,51,52,56,58,59,66,68). 07/13/2017 9:32 AM CDT 07/14/2017 1:36 AM CDT Narrative Resulting Agency Comment Performing Organization Information: ?Site ID: ?Name: Code [facility] ?Address: [address] [place] [address] ?Director: Arcenio Laureano MD us Jessica Leonard MD LAB BLOOD ORDERABLE S Final Result [facility] [place], [place] * ThinPrep Gynecologic Pap Test (Image-guided), Liquid-based Preparation (07/13/2017 9:32 AM CDT) Report status CANCELED [facility] Comment:Result canceled by t he ancillary Clinical information [facility] Comment:Intrauterine contrac eptive device LMP 07/01/2017 [facility] Previous Pap NONE GIVEN [facility] Prev. Bx NONE GIVEN [facility] Source [facility] Comment:Cervix, Endocervix Pap, specimen adequacy [facility] Comment: Satisfactory for evaluation. Endocervical/transformation zone component present. Pap, general categorization CANCELED [facility] Comment:Result canceled by t he ancillary HPV interp [facility] Comment:Negative for intraep ithelial lesion or malignancy. Infection: CANCELED [facility] Comment:Result canceled by t he ancillary COMMENTS [facility] - Comment: This Pap test has been evaluated with computer assisted technology. Camper Assembler [facility] - Comment: ABC, CT(ASCP) CT screening location: [place] [address] [address] [place] [address] Review garment finisher CANCELED [facility] - Comment:Result canceled by t he ancillary Pathologist CANCELED [facility] Comment:Result canceled by t he ancillary 07/13/2017 9:32 AM CDT 07/14/2017 1:36 AM CDT Narrative Resulting Agency Comment Performing Organization Information: ?Site ID: ?Name: [facility] ?Address: [facility] [address] [place] [address] ?Director: Arcenio Laureano MD Jessica Leonard MD LAB PATHOLOGY ORDER RANJITH Final Result [facility] - [place] Vela ND documented in this encounter Visit Diagnoses Not on filedocumented in this encounter Care Teams Academic Dean Relationship Specialty Start Date End Date Vitaly Doe MD [address] [place] [address] PCP - General 12/24/16 Jessica Leonard MD [address] [place] [address] Obstetrics and Gynecology 07/15/17 documented as of this encounter
--- OUTSIDE RECORDS SUMMARY | 2024-10-07 14:25 | XMS_ITS | Encounter Summary ---
Author Organization [facility] Address [address] [place] [address] Care Team Providers Care Interactive Media Specialist Name Role Phone Unavailable Primary Care Provider Unavailabl e Reason for Referral * Radiology Services (Routine) - Closed Specialty Diagnoses / Procedures Referred By Manuel julian Referred To Contact Diagnoses Advanced maternal age in multigravida, second trimester Maternal thyroid dysfunction, antepartum Procedures US OB DETAIL SINGLE GEST US OB DETAIL SINGLE GEST Sharon Bryson MD [address] [place] [phone] [facility] [address] [place] [address] Referral ID Status Reason Start Date Expiration Date Visits Re quested Visits Authorized [id number] Closed 05/21/2024 05/25/2025 1 1 Reason for Visit * Radiology Services (Routine) - Closed Specialty Diagnoses / Procedures Referred By Contac t Referred To Contact Diagnoses Advanced maternal age in multigravida, second trimester Maternal thyroid dysfunction, antepartum Procedures US OB DETAIL SINGLE GEST US OB DETAIL SINGLE GEST Sharon Bryson MD [address] [place] [phone] [facility] [address] [place] [address] Referral ID Status Reason Start Date Expiration Date Visits Re quested Visits Authorized [id number] Closed 05/21/2024 05/25/2025 1 1 Encounter Details Date Type Department Care Team (Late st Contact Info) Description 05/24/2024 9:45 AM CDT - 05/24/2024 11:59 PM CDT Hospital Encounter [facility] [address] [place] [address] Sharon Johnson MD [address] [place] [address] Discharge Disposition: Home or Self Care Social History Tobacco Use Types Packs/Day Years Used Date Smoking Tobacco: Never Passive Smoke Exposure: Never Smokeless Tobacco: Never Alcohol Use Standard Drinks/Week Comments Never 0 (1 standard drink = 0.6 oz pur e alcohol) Estimated Date of Delivery Comme nts Yes 10/07/2024 Sex and Gender Information Value Date Recorded Sex Assigned at Not on file Gender Identity Not on file Sexual Orientation Not on file documented as of this encounter Medications at Time of Discharge Medication Sig Dispensed Refills Start Date End Date vits15/iron/folic/dss ( VIT 82-OIPH-VCGUJ-DSS ORAL) Take by mouth. ergocalciferol, vitamin D2, (VITAMIN D ORAL) Take 2,000 Units by mouth daily. aspirin (ECOTRIN EC) 81 mg Tablet, Delayed Release (E.C.) Take 81 mg by mouth daily. documented as of this encounter Plan of Treatment Not on file documented as of this encounter Procedures Procedure Name Priority Date/Time Associated Diagnosis Comments US OB DETAIL SINGLE GEST Routine 05/24/2024 12:26 PM CDT Advanced maternal age in multigravida, second trimester Maternal thyroid dysfunction, antepartum documented in this encounter Results * US OB DETAIL SINGLE GEST (05/24/2024 12:26 PM CDT) Anatomical Region Laterality Modality Pelvis Ultrasound 05/24/2024 9:56 AM CDT Narrative 05/24/2024 12:06 PM CDT STL COMP ----- Pat. Name: ANAHI RANKIN Study Date: 05/24/2024 9:56am Pat. NO: [id number] Referring ??MD: SHARON JOHNSON MD Site: [place] Bus Monitor: Nkechi Hall RDMS : 1985 Age: 38 ----- INDICATION ----- Anatomy Survey Advanced Maternal Age (AMA), Multigravida Thyroid Dysfunction Complicating CODING ----- Diagnoses ? Z3A.20: Weeks of gestation ?O99.282: Other endocrine, nutritional and metabolic diseases complicating ?O09.522: Supervision of elderly multigravida ?Z36.3: Encounter for screening for malformations Procedures ?62991: Ultrasound, uterus, real time with image documentation, and maternal evaluation ?plus detailed anatomic examination, transabdominal approach HISTORY ----- OB History ? 5. Para 4 ?T4 MATERNAL ASSESSMENT ----- Physical Exam ? Weight 89 kg. BMI 31.80 kg/m?? METHOD ----- Transabdominal ultrasound examination ----- Tai . Number of fetuses: 1 DATING ----- Method of dating: based on the LMP LMP on: 01/01/2024 GA by LMP 20 w + 4 d [place] by LMP: 10/07/2024 Ultrasound examination on: 05/24/2024 GA by U/S based upon: AC, BPD, EFW, Femur, HC GA by U/S 21 w + 2 d [place] by U/S: 10/02/2024 Assigned: based on the LMP, selected on 05/24/2024 Assigned GA 20 w + 4 d Assigned [place]: 10/07/2024 BIOMETRY ----- BPD ?52.5 ? mm ? 22w 0d ? 92% ?Hadlock OFD ?68.5 ? mm ? 22w 6d ? 98% ?Mark ? 193.8 ?mm ? 21w 4d ? 84% ?Hadlock Cerebellum tr ?23.7 ? mm ? 22w 5d ? 95% ?Duque Nuchal fold ?3.2 ?mm AC ? 163.0 ?mm ? 21w 3d ? 70% ?Hadlock Femur ?34.1 ? mm ? 20w 5d ? 47% ?Hadlock Humerus ?32.4 ? mm ? 20w 6d ? 61% ?Mark HC / AC ?1.19 ?62% ? Nicolaides Weight Calculation: EFW ?403 ? g ?21w 0d ?75% ?Hadlock EFW (lb,oz) ?0 lb 14 ? oz EFW by ?Hadlock ([id number]) Head / Face / Neck Biometry: Environmental Associate ? 6.4 ? mm CM ? 5.9 ? mm ? 74% ?Nicolaides Inner IOD ?15.3 ?mm Nasal ?7.6 ?mm bone Extremities / Bony Struc Biometry: FL / BPD ? 0.65 ?6% ?Hadlock FL / HC ?0.18 ?17% ?Hadlock FL / AC ?0.21 ?19% ?Hadlock GENERAL EVALUATION ----- Cardiac activity present. FHR 143 bpm. movements: present. Presentation: breech Placenta: Placental site: right lateral Umbilical cord: Cord vessels: 3 vessel cord. Insertion site: placental insertion: normal Amniotic fluid: Amount of AF: normal amount. MVP 5.7 cm ANATOMY ----- The following structures appear normal: Head / Neck ? Cranium. Lateral ventricles. Choroid plexus. Midline falx. Cavum septi pellucidi. Cerebellum. Cisterna ?magna. Thalami. ?Nuchal fold. Face ?Lips. Profile. Nose. Palate. Orbits. Heart / Thorax ?4-chamber view. RVOT view. LVOT view. 3-vessel view. 2-xvwqke-ipaiqqz view. Situs. Aortic arch view. ?Ductal arch view. Superior vena cava. Inferior vena cava. High short axis view. Cardiac rhythm. ?Diaphragm. Abdomen ? Abdominal wall. Stomach. Kidneys. Bladder. Spine ? Cervical spine. Thoracic spine. Lumbar spine. Sacral spine. Extremities / ? Arms. Right hand. Left hand. Legs. Right foot. Left foot. Skeleton MATERNAL STRUCTURES ----- Cervix ?Visualized ?Approach - Transabdominal: Cervical length 42.5 mm Right Ovary ? Not visualized Left Ovary ?Not visualized GROWTH OVERVIEW ----- Exam date ? GA ?BPD (mm) ? HC (mm) ?AC (mm) ? FL (mm) ?HL (mm) ?EFW (g) 05/24/2024 ?20w 4d ?52.5 ?92% ?193.8 ? 84% ?163.0 ?70% ?34.1 ?47% ?32.4 ?61% ?403 ? 75% COMMENT ----- Patient's name and date of were verified by the warp knit operator before the exam IMPRESSION ----- Viable at 20 weeks gestation complicated by advanced maternal age The biometry is consistent with the established gestational age No structural malformations or markers of aneuploidy were identified Amniotic fluid volume is normal Right lateral placenta with normal placental cord insertion appreciated; placenta is not low-lying Normal cervical length based upon a transabdominal ultrasound assessment Ultrasound cannot identify all structural malformations nor exclude a diagnosis of aneuploidy Recommend a follow-up ultrasound at 32 weeks gestation to assess growth and development Procedure Note Andrea Willson MD - 05/24/2024 STL COMP ----- Pat. Name:Mohan RANKIN Date:05/24/2024 9:56am Pat. NO: [id number] MD:SHARON JOHNSON MD [facility]Nkechi Hall RDMS :1985Age:38 ----- INDICATION ----- Anatomy Survey Advanced Maternal Age (AMA), Multigravida Thyroid Dysfunction Complicating CODING ----- Diagnoses Z3A.20: Weeks of gestation O99.282: Other endocrine, nutritional andmetabolic diseases complicating O09.522: Supervision of elderly multigravida Z36.3: Encounter for screening formalformations Procedures 17230: Ultrasound, uterus, real time withimage documentation, and maternal evaluation plus detailed anatomic examination,transabdominal approach HISTORY ----- OB History 5. Para 4 T4 MATERNAL ASSESSMENT ----- Physical Exam Weight 89 kg. BMI 31.80 kg/m?? METHOD ----- Transabdominal ultrasound examination ----- Tai . Number of fetuses: 1 DATING ----- Method of dating:based on the LMP LMP on:01/01/2024 GA by LMP20 w + 4 d [place] by LMP:10/07/2024 Ultrasound examination on:05/24/2024 GA by U/S based upon:AC, BPD, EFW, Femur, HC GA by U/S21 w + 2 d [place] by U/S:10/02/2024 Assigned:based on the LMP, selected on 05/24/2024 Assigned GA20 w + 4 d Assigned [place]:10/07/2024 BIOMETRY ----- BPD 52.5 mm 22w 0d92% Hadlock OFD 68.5 mm 22w 6d98% Mark HC 193.8 mm 21w 4d84% Hadlock Cerebellum tr 23.7 mm 22w 5d95% Duque Nuchal fold 3.2 mm AC 163.0 mm 21w 3d70% Hadlock Femur 34.1 mm 20w 5d47% Hadlock Humerus 32.4 mm 20w 6d61% Mark HC / AC 1.19 62%Nicolaides Weight Calculation: EFW 403 g 21w 0d 75%Hadlock EFW (lb,oz) 0 lb 14 oz EFW by Hadlock ([id number]) Head / Face / Neck Biometry: Environmental Associate 6.4 mm CM 5.9 mm 74%Nicolaides Inner IOD 15.3 mm Nasal 7.6 mm bone Extremities / Bony Struc Biometry: FL / BPD 0.65 6%Hadlock FL / HC 0.18 17%Hadlock FL / AC 0.21 19%Hadlock GENERAL EVALUATION ----- Cardiac activity present. FHR 143 bpm. movements: present.Presentation: breech Placenta: Placental site: right lateral Umbilical cord: Cord vessels: 3 vessel cord. Insertion site: placentalinsertion: normal Amniotic fluid: Amount of AF: normal amount. MVP 5.7 cm ANATOMY ----- The following structures appear normal: Head / Neck Cranium. Lateral ventricles. Choroid plexus.Midline falx. Cavum septi pellucidi. Cerebellum. Cisterna magna. Thalami. Nuchal fold. Face Lips. Profile. Nose. Palate. Orbits. Heart / Thorax 4-chamber view. RVOT view. LVOT view. 3-vesselview. 5-jxxxog-snzjqaj view. Situs. Aortic arch view. Ductal arch view. Superior vena cava. Inferiorvena cava. High short axis view. Cardiac rhythm. Diaphragm. Abdomen Abdominal wall. Stomach. Kidneys. Bladder. Spine Cervical spine. Thoracic spine. Lumbar spine.Sacral spine. Extremities / Arms. Right hand. Left hand. Legs. Right foot.Left foot. Skeleton MATERNAL STRUCTURES ----- Cervix Visualized Approach - Transabdominal: Cervical length 42.5mm Right Ovary Not visualized Left Ovary Not visualized GROWTH OVERVIEW ----- Exam date GA BPD (mm) HC (mm) AC (mm) FL(mm) HL (mm) EFW (g) 05/24/2024 20w 4d 52.5 92% 193.8 84% 163.0 70%34.1 47% 32.4 61% 403 75% COMMENT ----- Patient's name and date of were verified by the warp knit operator beforethe exam IMPRESSION ----- Viable at 20 weeks gestation complicated by advanced maternalage The biometry is consistent with the established gestational age No structural malformations or markers of aneuploidy wereidentified Amniotic fluid volume is normal Right lateral placenta with normal placental cord insertion appreciated;placenta is not low-lying Normal cervical length based upon a transabdominal ultrasound assessment Ultrasound cannot identify all structural malformations nor exclude adiagnosis of aneuploidy Recommend a follow-up ultrasound at 32 weeks gestation to assess fetalgrowth and development Sharon Johnson MD US ORDERABLES documented in this encounter Visit Diagnoses Diagnosis Advanced maternal age in multigravida, second trimester Maternal thyroid dysfunction, antepartum Thyroid dysfunction, antepartum documented in this encounter
--- OUTSIDE RECORDS SUMMARY | 2024-10-07 14:25 | XMS_ITS | Encounter Summary ---
Author Organization [facility] Address [address] [place] [address] Care Team Providers Care Assistant Restaurant General Manager Name Role Phone Unavailable Primary Care Provider Unavailabl e Encounter Details Date Type Department Care Team (Late st Contact Info) Description 06/26/2024 External Device Data [facility] ABSTRACTION Provider, Abstract NO ADDRESS ON FILE Social History Tobacco Use Types Packs/Day Years [...]
--- OUTSIDE RECORDS SUMMARY | 2024-10-07 14:25 | XMS_ITS | Encounter Summary ---
Author Organization [facility] Address [address] [place] [address] Phone Care Team Providers Care Manager Of Marketing Name Role Phone Vitaly Doe MD Primary Care Provider +1- [phone] Jessica Leonard MD Unavailable +1 -[phone] Encounter Details Date Type Department Care Team (Late st Contact Info) Description 07/18/2017 Telephone [facility] [address] [place] [address] Judy Chance LPN Social History Tobacco Use Types Packs/Day Years Used Date Smoking Tobacco: Never Smokeless Tobacco: Never Alcohol Use Standard Drinks/Week Comments No 0 (1 standard drink = 0.6 oz pur e alcohol) Comments No Sex and Gender Information Value Date Recorded Sex Assigned at Not on file 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 * Telephone Encounter - Judy Chance LPN - 07/18/2017 9:18 AM CDT ----- Message from Jessica Leonard MD sent at 07/17/2017 8:23 PM CDT ----- Normal pap, HPV (-). documented in this encounter Plan of Treatment Not on file documented as of this encounter Visit Diagnoses Not on filedocumented in this encounter Care Teams Manager Of Marketing Relationship Specialty Start Date End Date Vitaly Doe MD [address] [place] [address] PCP - General 12/24/16 Jessica Leonard MD [address] [place] [address] Obstetrics and Gynecology 07/15/17 documented as of this encounter
--- OUTSIDE RECORDS SUMMARY | 2024-10-07 14:25 | XMS_ITS | Encounter Summary ---
Author Organization [facility] Address [address] [address] Care Team Providers Care Emergency Medical Service Coordinator Name Role Phone Unavailable Primary Care Provider Unavailabl e Encounter Details Date Type Department Care Team (Late st Contact Info) Description 04/24/2024 Abstract [facility] Maternal Medicine [address] [facility] [address] [place] [address] Tita Galan Social History Tobacco Use Types Packs/Day Years Used Date Smoking Tobacco: Never Assessed Sex and Gender Information Value Date Recorded Sex Assigned at Not on file Gender Identity Not on file Sexual Orientation Not on file documented as of this encounter Plan of Treatment Not on file documented as of this encounter Visit Diagnoses Not on filedocumented in this encounter
--- OUTSIDE RECORDS SUMMARY | 2024-10-07 14:25 | XMS_ITS | Clinical Summary ---
Author Organization [facility] Address [address] [place] [address] Phone Care Team Providers Care Plastic Installer Name Role Phone Unavailable Primary Care Provider Unavailabl e Allergies No known active allergies Medications Medication Sig Dispensed Refills Start Date End Date Status vits15/iron/folic/dss ( VIT 73-IHZM-UDTMB-DSS ORAL) Take by mouth. Active ergocalciferol, vitamin D2, (VITAMIN D ORAL) Take 2,000 Units by mouth daily. Active aspirin (ECOTRIN EC) 81 mg Tablet, Delayed Release (E.C.) Take 81 mg by mouth daily. Active Active Problems Problem Noted Date Diagnosed Date Advanced maternal age in multigravida 05/15/2024 Interstitial cystitis 05/15/2024 Thyroid function test abnormal 05/08/2024 Estimated Date of Delivery Comme nts Yes 10/07/2024 Social History Tobacco Use Types Packs/Day Years [...] Sign Reading Time Taken Comments Blood Pressure - - Pulse - - Temperature - - Respiratory Rate - - Oxygen Saturation - - Inhaled Oxygen Concentration - - Weight 89.4 kg (197 lb) 05/15/2024 10:02 AM CDT Height 167.6 cm (5' 6 ) 05/15/2024 10:02 AM CDT Body Mass Index 31.8 05/15/2024 10:02 AM CDT Plan of Treatment Health Maintenance Due Date Last Done Comments HEPATITIS B VACCINES (1 of 3 - 19+ 3-dose series) 2005 CERVICAL CANCER SCREENING 2016 INFLUENZA VACCINE (#1) 2024 09/05/2015 DTAP/TDAP/TD VACCINES (2 - T d or Tdap) 03/16/2026 03/16/2016 HPV VACCINES Aged Out No longer eligi ble based on patient's age to complete this topic PNEUMOCOCCAL VACCINE 0-64 YEARS Aged Out No longer eligible based on patient's age to complete this topic RSV VACCINE (60+ or ) (No Doses Required) Completed
--- OUTSIDE RECORDS SUMMARY | 2024-10-07 14:25 | XMS_ITS | Encounter Summary ---
Author Organization [facility] Address [address] [place] [address] Care Team Providers Care Head Turning Machine Operator Name Role Phone Vitaly Doe MD Primary Care Provider +1- [phone] Jessica Leonard MD Unavailable [phone] [phone] Encounter Details Date Type Department Care Team (Late st Contact Info) Description 07/24/2018 Telephone [facility] [address] [place] [address] Judy Chance LPN Social History Tobacco Use Types Packs/Day Years Used Date Smoking Tobacco: Never Smokeless Tobacco: Never Alcohol Use Standard Drinks/Week Comments No 0 (1 standard drink = 0.6 oz pur e alcohol) Comments No Sex and Gender Information Value Date Recorded Sex Assigned at Not on file Legal Sex Female 1:41 AM CIRCUIT RECORDER Gender Identity Not on file Sexual Orientation Not on file 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 * Telephone Encounter - Judy Chance LPN - 07/24/2018 8:42 AM CDT ----- Message from Jessica Leonard MD sent at 07/24/2018 8:25 AM CDT ----- Normal pap. documented in this encounter Plan of Treatment Not on file documented as of this encounter Visit Diagnoses Not on filedocumented in this encounter Care Teams Head Turning Machine Operator Relationship Specialty Start Date End Date Vitaly Doe MD [address] [place] [address] PCP - General 12/24/16 Jessica Leonard MD [address] [place] [address] Obstetrics and Gynecology 07/15/17 documented as of this encounter
--- OUTSIDE RECORDS SUMMARY | 2024-10-07 14:25 | XMS_ITS | Encounter Summary ---
Author Organization [facility] Address [address] [place] [address] Care Team Providers Care Heater Worker Name Role Phone Unavailable Primary Care Provider Unavailabl e Encounter Details Date Type Department Care Team (Late st Contact Info) Description 05/10/2024 Abstract [facility] Maternal Medicine [address] [place] [phone] Kym Blackwood, RN Social History Tobacco Use Types Packs/Day Years Used Date Smoking Tobacco: Never Assessed Estimated Date of Delivery Comme nts Yes 10/07/2024 Sex and Gender Information Value Date Recorded Sex Assigned at Not on file Gender Identity Not on file Sexual Orientation Not on file documented as of this encounter Plan of Treatment Not on file documented as of this encounter Visit Diagnoses Not on filedocumented in this encounter
--- OUTSIDE RECORDS SUMMARY | 2024-10-07 14:25 | XMS_ITS | Encounter Summary ---
Author Organization [facility] Address [address] [email or web address] [address] Phone Care Team Providers Care Pc Analyst Name Role Phone Nader, Vitaly Ravi MD Primary Care Provider +1- [phone] Jessica Leonard MD Unavailable +1 -[phone] Reason for Visit * Reason Comments Gynecologic Exam Encounter Details Date Type Department Care Team (Late st Contact Info) Description 07/12/2017 3:10 PM CDT Office Visit [facility] [address] [email or web address] [address] Jessica Leonard MD [address] [address] Encounter for gynecological examination (Primary Dx) Social History Tobacco Use Types Packs/Day Years Used Date Smoking Tobacco: Never Smokeless Tobacco: Never Tobacco Cessation:Counseling Given: Yes Alcohol Use Standard Drinks/Week Comments No 0 (1 standard drink = 0.6 oz pur e alcohol) Comments No Sex and Gender Information Value Date Recorded Sex Assigned at Not on file Legal Sex Female 1:41 AM OPERATIONS PROGRAM MANAGER Gender Identity Not on file Sexual Orientation Not on file 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 Not on file documented as of this encounter Last Filed Vital Signs Vital Sign Reading Time Taken Comments Blood Pressure 120/60 07/12/2017 3:53 PM CDT Pulse 56 07/12/2017 3:53 PM CDT Temperature - - Respiratory Rate 12 07/12/2017 3:53 PM CDT Oxygen Saturation 99% 07/12/2017 3:53 PM CDT Inhaled Oxygen Concentration - - Weight 76.7 kg (169 lb) 07/12/2017 3:53 PM CDT Height 167.6 cm (5' 6 ) 07/12/2017 3:53 PM CDT Body Mass Index 27.28 07/12/2017 3:53 PM CDT documented in this encounter Progress Notes * Jessica Leonard - 07/12/2017 3:10 PM CDT Images from the original note were not included. Assessment: ICD-9-CM ICD-10-CM 1. Encounter for gynecological examination V72.31 Z01.419 Plan: ?? Pap smear obtained with HPV testing. HPI: Anahi is a 31 y.o. MWF , who presents for annual exam. She has a Liletta IUD that was inserted on 05/14/16, and still has monthly periods, and sometimes cramping. She denies any highway painter concerns. History: I have updated the EPIC record to reflect current allergies, medications, medical history, surgicalhistory, social history, family history, and the active problem list. Past Medical History: Diagnosis Date ? ? Abnormal Pap smear of cervix 2008 & 2010 NAVDEEP I on biopsy 2008; ASCUS, HPV (+) in 2010 Past Surgical History: Procedure Laterality Date ??? DIAGNOSTIC LAPAROSCOPY 2008 suspected endometriosis ??? LASIK 2008 ??? WISDOM TOOTH EXTRACTION 2011 Social History Social History ??? Marital status: Spouse name: Jorge Rankin ??? Number of children: 3 ??? 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 Smoking status: Never Smoker ??? Smokeless tobacco: Never Used ??? Alcohol use No ??? Drug use: No ??? Sexual activity: Yes Partners: Male control/ protection: IUD Social History Narrative Has 2 sons and 1 daughter. Family History Problem Relation Age of Onset ??? Hypertension Paternal Grandmother ??? Heart attack Paternal Grandmother COD at age 50 ??? Hyperlipidemia Paternal Grandmother ??? Diabetes Paternal Grandmother ??? Heart attack Paternal Grandfather COD at age 60 ??? Hypertension Father ??? Hyperlipidemia Father ??? Heart attack Father 50 ??? Diabetes Father ??? Hypertension Maternal Grandmother ??? Hyperlipidemia Maternal Grandmother ??? Diabetes Maternal Grandmother ??? Hypertension Mother ??? Breast cancer Mother 55 ??? Heart attack Father's Brother 30 ??? Stroke Father's Brother CVA w/brain tumor ??? Other Other hypospadias in nephew ??? Other Other anencephaly in sister's child ??? Heart attack Maternal Grandfather 60 ??? Cancer Mother's Sister chondrosarcoma ??? Brain cancer Mother's Brother COD ??? Brain cancer Father's Brother COD Allergies: No Known Allergies Medications: Current Outpatient Prescriptions: ??? levonorgestrel (LILETTA) 18.6 mcg/24 hr (3 years) intrauterine device IUD, insert 1 unit by intrauterine route once for 3 years, Disp: 1 Device, Rfl: 0 ??? vit no.[id number] ( ONE DAILY) 27 mg iron- 800 mcg tablet, take 1 tablet by oral route every day, Disp: 0, Rfl: 0 Review of Systems: The patient-completed Review of Systems was reviewed and was scanned as an attachment to this encounter. Physical Exam: Patient's last menstrual period was 07/01/2017 (exact date). Wt Readings from Last 3 Encounters: 11/08/17 165 lb (74.8 kg) 07/12/17 169 lb (76.7 kg) 12/09/16 179 lb (81.2 kg) Body mass index is 27.28 kg/m??. Vitals: 07/12/17 1553 BP: 120/60 Pulse: 56 Resp: 12 SpO2: 99% Weight: 169 lb (76.7 kg) Height: 167.6 cm (5' 6 ) General: WNWD female in NAD. Mental status: Alert and oriented X 3, with calm, cooperative affect. HEENT: Normocephalic. Neck: Supple, without masses or thyromegaly. Lungs: CTA. Heart:: RRR, without abnormal sounds. Breasts: No masses, nipple discharge, or skin dimpling. Abdomen: Soft, non-distended. No masses, tenderness, or hernias. Lymph nodes: No lymphadenopathy in axillary, inguinal, or supraclavicular regions. Skin: Warm and dry, without abnormal rashes or suspicious moles on examined skin. Pelvic exam: External genitalia: Normale female. No external lesions. Anus and perineum: Intact. No visible lesions. Urethral meatus: [place], without prolapse or lesions. Vagina: [place], well-rugated. Cervix: [place]; os closed. No visible lesions. IUD strings seen. Uterus: No palpable abnormalities. Adnexa: No palpable masses or tenderness. Bladder and urethra: Nontender, without masses. Jessica Leonard MD documented in this encounter Plan of Treatment Not on file documented as of this encounter Visit Diagnoses Diagnosis Encounter for gynecological examination- Primary documented in this encounter Care Teams Pc Analyst Relationship Specialty Start Date End Date Vitaly Doe MD [address] [place] [address] PCP - General 12/24/16 Jessica Leonard MD [address] [place], [place] [address], [place] [address] Obstetrics and Gynecology 07/15/17 documented as of this encounter
--- OUTSIDE RECORDS SUMMARY | 2024-10-07 14:25 | XMS_ITS | Encounter Summary ---
Author Organization [facility] Address [address] [place] [address] Care Team Providers Care Armature Repairer Name Role Phone Unavailable Primary Care Provider Unavailabl e Reason for Referral * Eval and Treat (Routine) - Open Specialty Diagnoses / Procedures Referred By Manuel julian Referred To Contact Perinatology Diagnoses Advanced maternal age in multigravida, second trimester Maternal thyroid dysfunction, antepartum Procedures TX OFFICE/OUTPATIENT ESTABLISHED MOD MDM 30 MIN TX OFFICE/OUTPATIENT NEW MODERATE MDM 45 MINUTES Sharon Johnson MD [address] [place] [address] [facility] Maternal And Medicine [address] [place] [address] Referral ID Status Reason Start Date Expiration Date Visits Re quested Visits Authorized [id number] Open 04/24/2024 04/24/2025 1 1 Encounter Details Date Type Department Care Team (Late st Contact Info) Description 04/24/2024 Orders Only [facility] Maternal and Ground [address] [place] [address] Sharon Johnson MD [address] [place] [address] Advanced maternal age in multigravida, second trimester (Primary Dx); Maternal thyroid dysfunction, antepartum Social History Tobacco Use Types Packs/Day Years Used Date Smoking Tobacco: Never Assessed Sex and Gender Information Value Date Recorded Sex Assigned at Not on file Gender Identity Not on file Sexual Orientation Not on file documented as of this encounter Plan of Treatment Scheduled Referrals Name Type Priority Associated Diagnoses Order Schedule AMB REFERRAL TO PERINATOLOGY Outpatient Referral Routine Advanced maternal age in multigravida, second trimester Maternal thyroid dysfunction, antepartum Ordered: 04/24/2024 documented as of this encounter Visit Diagnoses Diagnosis Advanced maternal age in multigravida, second trimester- Primary Maternal thyroid dysfunction, antepartum Thyroid dysfunction, antepartum documented in this encounter
--- OUTSIDE RECORDS SUMMARY | 2024-10-07 14:25 | XMS_ITS | Encounter Summary ---
Author Organization [facility] Address [address] [place] [address] Care Team Providers Care Functional Mental Disability Teacher Name Role Phone Unavailable Primary Care Provider Unavailabl e Encounter Details Date Type Department Care Team (Late st Contact Info) Description 05/22/2024 External Device Data [facility] ABSTRACTION Provider, Abstract [...]
--- OUTSIDE RECORDS SUMMARY | 2024-10-07 14:25 | XMS_ITS | Encounter Summary ---
Author Organization [facility] Address [address] [place] [address] Care Team Providers Care Manager New Product Name Role Phone Unavailable Primary Care Provider Unavailabl e Encounter Details Date Type Department Care Team (Late st Contact Info) Description 05/17/2024 External Device Data [facility] ABSTRACTION Provider, Abstract [...]
--- OUTSIDE RECORDS SUMMARY | 2024-10-07 14:25 | XMS_ITS | Referral Summary ---
Author Organization [facility] [address] Address [address] [place] [address] Phone Care Team Providers Care Head Teacher Name Role Phone Nader, Vitaly Ravi MD Primary Care Provider [phone]- [phone] Jessica Leonard MD Unavailable [phone] [phone] Allergies No known active allergies Medications vit no.360-dsib-lur ic ( ONE DAILY) 27 mg iron- 800 mcg tablet take 1 tablet by oral route every day 0 0 5 Active levonorgestrel (LILETTA) 19.5 mcg/24 hour (4 years) IUD by intrauterine route once for 1 dose. 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 Not on file Last Filed Vital Signs Vital Sign Reading Time Taken Comments Blood Pressure 122/78 07/18/2018 1:58 PM CDT Pulse 82 11/08/2017 10:09 AM UPHOLSTERY AUTO TRIMMER Temperature - - Respiratory Rate 16 11/08/2017 10:09 AM UPHOLSTERY AUTO TRIMMER Oxygen Saturation 98% 11/08/2017 10:09 AM UPHOLSTERY AUTO TRIMMER Inhaled Oxygen Concentration - - Weight 73.5 kg (162 lb) 07/18/2018 1:58 PM CDT Height 168.9 cm (5' 6.5 ) 07/18/2018 1:58 PM CDT Body Mass Index 25.76 07/18/2018 1:58 PM CDT Plan of Treatment Not on file Insurance [facility] [place] [address] Care Teams Head Teacher Relationship Specialty Start Date End Date Vitaly Doe MD [address] [place] [address] PCP - General 12/24/16 Jessica Leonard MD [address] [place] [address] Obstetrics and Gynecology 07/15/17
--- OUTSIDE RECORDS SUMMARY | 2024-10-07 14:25 | XMS_ITS | Encounter Summary ---
Author Organization [facility] Address [address] [place] [address] Phone Care Team Providers Care Ferryboat Operator Cable Name Role Phone Vitaly Doe MD Primary Care Provider [phone]- [phone] Jessica Leonard MD Unavailable [phone] -[phone] Encounter Details Date Type Department Care Team (Late st Contact Info) Description 11/11/2017 Telephone [facility] [address] [place] [address] Judy Chance LPN Social History Tobacco Use Types Packs/Day Years Used Date Smoking Tobacco: Never Smokeless Tobacco: Never Alcohol Use Standard Drinks/Week Comments No 0 (1 standard drink = 0.6 oz pur e alcohol) Comments No Sex and Gender Information Value Date Recorded Sex Assigned at Not on file Legal Sex Female 1:41 AM CODING QUALITY COORDINATOR Gender Identity Not on file Sexual Orientation Not on file 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 file Not on file documented as of this encounter Miscellaneous Notes * Telephone Encounter - Judy Chance LPN - 11/11/2017 3:10 PM CODING QUALITY COORDINATOR Patient notified of results. NG QUALITY COORDINATOR * Telephone Encounter - Judy Chance LPN - 11/11/2017 3:10 PM CODING QUALITY COORDINATOR ----- Message from Jessica Leonard MD sent at 11/10/2017 4:14 PM CODING QUALITY COORDINATOR ----- You can let Anahi know that her UA and urine C&S were normal. Overall, the pelvic ultrasound looks pretty normal, though there is a question of whether or not there may be a little fluid collection in the left tube. This is a vague finding, and usually doesn't mean a lot. The IUD appears to be in place. The vaginal and cervical swab is not back yet. NG QUALITY COORDINATOR documented in this encounter Plan of Treatment Not on file documented as of this encounter Visit Diagnoses Not on filedocumented in this encounter Care Teams Ferryboat Operator Cable Relationship Specialty Start Date End Date Vitaly Doe MD [address] [place] [address] PCP - General 12/24/16 Jessica Leonard MD [address] [place] [address] Obstetrics and Gynecology 07/15/17 documented as of this encounter
--- OUTSIDE RECORDS SUMMARY | 2024-10-07 14:25 | XMS_ITS | Encounter Summary ---
Author Organization [facility] Address [address] [place] [address] Phone Care Team Providers Care Cotton Bag Clipper Name Role Phone Vitaly Doe MD Primary Care Provider +1- [phone] Jessica Leonard MD Unavailable [phone] -[phone] Encounter Details Date Type Department Care Team (Late st Contact Info) Description 11/15/2017 Telephone [facility] [address] [place] [address] Jessica Leonard MD [address] [place] [address] Social History Tobacco Use Types Packs/Day Years Used Date Smoking Tobacco: Never Smokeless Tobacco: Never Alcohol Use Standard Drinks/Week Comments No 0 (1 standard drink = 0.6 oz pur e alcohol) Comments No Sex and Gender Information Value Date Recorded Sex Assigned at Not on file Legal Sex Female 1:41 AM COMMUNITY RELATIONS ADVISOR Gender Identity Not on file Sexual Orientation Not on file 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 file Not on file documented as of this encounter Miscellaneous Notes * Telephone Encounter - Judy Chance LPN - 11/17/2017 11:59 AM COMMUNITY RELATIONS ADVISOR LMOM to return call. UNITY RELATIONS ADVISOR * Telephone Encounter - Judy Chance LPN - 11/15/2017 4:13 PM COMMUNITY RELATIONS ADVISOR LMOM to return call. UNITY RELATIONS ADVISOR * Telephone Encounter - Jessica Leonard - 11/15/2017 4:08 PM CST While interstitial cystitis can't be cured, it can be greatly improved, with medications like Elmiron. Did she ever take Elmiron for treatment? I would think that Dr. Vargas would have recommended some treatment for it. Diet can definitely affect it, but there are several available treatments. It is certainly possible that there could be a return of endometriosis but only laparoscopy could confirm that for her. It would also be reasonable to remove the IUD, and see if her pain improves. Sometimes, for unclear reasons, the IUD can start causing pelvic pain. UNITY RELATIONS ADVISOR * Telephone Encounter - Judy Chance LPN - 11/15/2017 1:36 PM COMMUNITY RELATIONS ADVISOR Patient was given all the results and states she had another episode with possible UTI episode thisweekend. She has seen Dr. Vargas for interstitual cystitis but did not have the actual testing and he informed her that there was no cure. She needs to follow her diet more. She has not been working out the past 6 months either. Wonders if it could be endometriosis coming back.... She wanted to pick your brain to see what your thoughts were since all the testing came back ok. UNITY RELATIONS ADVISOR * Telephone Encounter - Sandy Grey - 11/15/2017 1:07 PM CST Pt called requesting her swab results and I informed her that it was normal. She is still complaining of pelvic pain and UTI symptoms. She is thinking that maybe endometriosis is playing a part in this as well. Would like a call back at [facility]# [phone] UNITY RELATIONS ADVISOR documented in this encounter Plan of Treatment Not on file documented as of this encounter Visit Diagnoses Not on filedocumented in this encounter Care Teams Cotton Bag Clipper Relationship Specialty Start Date End Date Vitaly Doe MD [address] [place] [address] PCP - General 12/24/16 Jessica Leonard MD [address] [place] [address] Obstetrics and Gynecology 07/15/17 documented as of this encounter
--- OUTSIDE RECORDS SUMMARY | 2024-10-07 14:25 | XMS_ITS | Encounter Summary ---
Author Organization [facility] Address [address] [place] [address] Care Team Providers Care Pipe Fitter Maintenance Name Role Phone Unavailable Primary Care Provider Unavailabl e Encounter Details Date Type Department Care Team (Late st Contact Info) Description 05/18/2024 Orders Only [facility] Maternal Medicine [address] [facility] [address] [place] [address] Larissa Castanon MD [address] [place] [address] Thyroid function test abnormal (Primary Dx); Multigravida of advanced maternal age in second trimester Social History Tobacco Use Types Packs/Day Years [...] of this encounter Plan of Treatment Scheduled Orders Name Type Priority Associated Diagnoses Orde r Schedule TSH REFLEXIVE Lab Routine Thyroid function test abnormal Multigravida of advanced maternal age in second trimester Expected: 05/18/2024, Expires: 05/18/2025 T4 FREE Lab Routine Thyroid function test abnormal Multigravida of advanced maternal age in second trimester Expected: 05/18/2024, Expires: 05/18/2025 documented as of this encounter Visit Diagnoses Diagnosis Thyroid function test abnormal- Primary Nonspecific abnormal results of thyroid function study Multigravida of advanced maternal age in second trimester documented in this encounter
--- OUTSIDE RECORDS SUMMARY | 2024-10-07 14:25 | XMS_ITS | Encounter Summary ---
Author Organization [facility] Address [address] [address] Care Team Providers Care Pmp Project Manager Name Role Phone Vitaly Doe MD Primary Care Provider +1- [phone] Jessica Leonard MD Unavailable +1 -[phone] Reason for Visit * Reason Comments Annual Exam Encounter Details Date Type Department Care Team (Late st Contact Info) Description 07/18/2018 2:00 PM CDT Office Visit [facility] [address] [place] [phone] Jessica Leonard MD [address] [place] [phone] Encounter for gynecological examination (Primary Dx); Routine cervical smear Social History Tobacco Use Types Packs/Day Years Used Date Smoking Tobacco: Never Smokeless Tobacco: Never Alcohol Use Standard Drinks/Week Comments No 0 (1 standard drink = 0.6 oz pur e alcohol) Comments No Sex and Gender Information Value Date Recorded Sex Assigned at Not on file Legal Sex Female 1:41 AM DIE CAST OPERATOR Gender Identity Not on file Sexual Orientation Not on file 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 Not on file documented as of this encounter Last Filed Vital Signs Vital Sign Reading Time Taken Comments Blood Pressure 122/78 07/18/2018 1:58 PM CDT Pulse - - Temperature - - Respiratory Rate - - Oxygen Saturation - - Inhaled Oxygen Concentration - - Weight 73.5 kg (162 lb) 07/18/2018 1:58 PM CDT Height 168.9 cm (5' 6.5 ) 07/18/2018 1:58 PM CDT Body Mass Index 25.76 07/18/2018 1:58 PM CDT documented in this encounter Ordered Prescriptions Prescription Sig Dispense Quantity Refills Last Filled Start Date End Date levonorgestrel (LILETTA) 19.5 mcg/24 hour (4 years) IUD by intrauterine route once for 1 dose. 1 Intra Uterine Device 07/18/2018 documented in this encounter Progress Notes * Horacio Jessica L. - 07/18/2018 2:00 PM CDT Images from the original note were not included. Assessment: ICD-9-CM ICD-10-CM 1. Encounter for gynecological examination V72.31 Z01.419 Plan: ?? Pap smear obtained. ?? Plans IUD removal around January of next year. HPI: Anahi is a 32 y.o. MWF , who presents for annual exam. She has a Liletta IUD that was inserted on 05/14/16, and she has short periods with it. She suspects she might have interstitial cystitis,and she made some dietary changes, and her pelvic pain is much better now. She is considering getting her IUD removed in January, and will schedule that when she desires. She denies any other wooden furniture polisher concerns. History: I have updated the EPIC record to reflect current allergies, medications, medical history, surgicalhistory, social history, family history, and the active problem list. Past Medical History: Diagnosis Date ? ? Abnormal Pap smear of cervix 2008 & 2010 NAVDEEP I on biopsy 2008; ASCUS, HPV (+) in 2010 Past Surgical History: Procedure Laterality Date ??? DIAGNOSTIC LAPAROSCOPY 2009 suspected endometriosis ??? LASIK 2008 ??? WISDOM [...] No ??? Sexual activity: Yes Partners: Male Social History Narrative Has 2 sons and [...] Medications: Current Outpatient Prescriptions: ??? levonorgestrel (LILETTA) 19.5 mcg/24 hour (4 years) IUD, by intrauterine route once for 1 dose., Disp: 1 Intra Uterine Device, Rfl: 0 ??? vit no.[id number]-jbwsf ( ONE DAILY) 27 mg iron- 800 mcg tablet, take 1 tablet by oral route every day, Disp: 0, Rfl: 0 Review of Systems: The patient-completed Review of Systems was reviewed and was scanned as an attachment to this encounter. Physical Exam: Patient's last menstrual period was 07/13/2018. Wt Readings from Last 3 Encounters: 07/18/18 162 lb (73.5 kg) 11/08/17 165 lb (74.8 kg) 07/12/17 169 lb (76.7 kg) Body mass index is 25.76 kg/m??. Vitals: 07/18/18 1358 BP: 122/78 Weight: 162 lb (73.5 kg) Height: 168.9 cm (5' 6.5 ) General: WNWD female in NAD. Mental status: Alert and oriented X 3, with calm, cooperative affect. HEENT: Normocephalic. Neck: Supple, without masses or thyromegaly. Lungs: CTA. Heart:: RRR, without abnormal sounds. Breasts: No masses, nipple discharge, or skin dimpling. Left nipple inverted. Abdomen: Soft, non-distended. No masses, tenderness, or hernias. Lymph nodes: No lymphadenopathy in axillary, inguinal, or supraclavicular regions. Skin: Warm and dry, without abnormal rashes or suspicious moles on examined skin. Pelvic exam: External genitalia: Normale female. No external lesions. Anus and perineum: Intact. No visible lesions. Urethral meatus: [place], without prolapse or lesions. Vagina: [place], well-rugated. Mucusy yellow discharge at cervix. Cervix: [place]; os closed. No visible lesions. Friable. IUD strings present. Uterus: No palpable abnormalities. Adnexa: No palpable masses or tenderness. Bladder and urethra: Nontender, without masses. Jessica Leonard MD documented in this encounter Miscellaneous Notes * Addendum Note - Tran Taylor MA - 07/18/2018 2:00 PM CDTAddended by: TRAN TAYLOR on: 07/18/2018 02:34 PM Modules accepted: Orders documented in this encounter Plan of Treatment Not on file documented as of this encounter Visit Diagnoses Diagnosis Encounter for gynecological examination- Primary Routine cervical smear Screening for malignant neoplasm of the cervix documented in this encounter Discontinued Medications Medication Sig Discontinue Reason Start Date End Da te levonorgestrel (LILETTA) 18.6 mcg/24 hr (3 years) intrauterine device IUD insert 1 unit by intrauterine route once for 3 years Side effects 06/13/2016 07/18/2018 documented as of this encounter Care Teams Pmp Project Manager Relationship Specialty Start Date End Date Vitaly Doe MD [address] [place] [address] PCP - General 12/24/16 Jessica Leonard MD [address] [place] [id number] Obstetrics and Gynecology 07/15/17 documented as of this encounter
--- OUTSIDE RECORDS SUMMARY | 2024-10-07 14:25 | XMS_ITS | Encounter Summary ---
Author Organization [facility] Address [address] [place] [address] Phone Care Team Providers Care Counselling Psychologist Name Role Phone Vitaly Doe MD Primary Care Provider [phone]- [phone] Jessica Leonard MD Unavailable [phone] [phone] Reason for Referral * Diagnostic Imaging (Routine) - Closed Specialty Diagnoses / Procedures Referred By Contac t Referred To Contact Diagnoses Pelvic pain in female Procedures US Transvaginal Jessica Leonard MD Phone: tel: fax: Referral ID Status Reason Start Date Expiration Date Visits Re quested Visits Authorized [id number] Closed 11/08/2017 05/07/2018 1 1 [facility] Reason for Visit * Diagnostic Imaging (Routine) - Closed Specialty Diagnoses / Procedures Referred By Contac t Referred To Contact Diagnoses Pelvic pain in female Procedures US Transvaginal Jessica Leonard MD Phone: tel: fax: Referral ID Status Reason Start Date Expiration Date Visits Re quested Visits Authorized [id number] Closed 11/08/2017 05/07/2018 1 1 Encounter Details Date Type Department Care Team (Latest Contact Info) Description 11/09/2017 10:33 AM [facility] - 11/09/2017 11:59 PM [facility] Hospital Encounter [facility] [address] [place] [address] Pelvic pain in female Discharge Disposition: Discharge to home or self care Social History Tobacco Use Types Packs/Day Years Used Date Smoking Tobacco: Never Smokeless Tobacco: Never Alcohol Use Standard Drinks/Week Comments No 0 (1 standard drink = 0.6 oz pur e alcohol) Comments No Sex and Gender Information Value Date Recorded Sex Assigned at Not on file Legal Sex Female 1:41 AM PEDIATRICIAN ACTIVE PRACTICE Gender Identity Not on file Sexual Orientation Not on file 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 file Not on file documented as of this encounter Medications at Time of Discharge vit no.251-[id number] ( ONE DAILY) 27 mg iron- 800 mcg tablet take 1 tablet by oral route every day 0 0 08/08/2015 levonorgestrel (LILETTA) 18.6 mcg/24 hr (3 years) intrauterine device IUD insert 1 unit by intrauterine route once for 3 years 1 Device 0 06/13/2016 8 documented as of this encounter Discharge Disposition Disposition Code Departure Means Destination Discharge to home or self care documented in this encounter Plan of Treatment Not on file documented as of this encounter Procedures Procedure Name Priority Date/Time Associated Diagnosis Comments US TRANSVAGINAL Schedule Routine, Read Routine (OP Routine) 11/09/2017 11:05 AM [facility]ATR[facility] ACTIVE PRACTICE Pelvic pain in female documented in this encounter Results * US Transvaginal (11/09/2017 11:05 AM [facility]) Anatomical Region Laterality Modality Pelvis N/A Ultrasound Narrative 11/10/2017 3:59 PM [facility] DIGITAL TRANSVAGINAL PELVIC ULTRASOUND Real Time high resolution transvaginal pelvic ultrasound reveals the right ovary to be normal measuring 3.6 x 2.1 x 2.1 cm. ??The left ovary is normal measuring 2.8x 1.7 x 2.0 cm. ??There is questionable dilatation of the left salpinx. No free fluid is seen. IMPRESSION Questionable dilatation of the left salpinx. Normal sonographic appearance of the ovaries. us Jessica Leonard MD IMG US PROCEDURES F inal Result documented in this encounter Visit Diagnoses Diagnosis Pelvic pain in female Unspecified symptom associated with female genital organs documented in this encounter Care Teams Counselling Psychologist Relationship Specialty Start Date End Date Vitaly Doe MD [address] [place] [address] PCP - General 12/24/16 Jessica Leonard MD [address] [place] [address] Obstetrics and Gynecology 07/15/17 documented as of this encounter
--- OUTSIDE RECORDS SUMMARY | 2024-10-07 14:25 | XMS_ITS | Encounter Summary ---
Author Organization [facility] Address [address] [place] [address] Care Team Providers Care Medical Billing Representative Name Role Phone Unavailable Primary Care Provider Unavailabl e Encounter Details Date Type Department Care Team (Late st Contact Info) Description 05/29/2024 External Device Data STL ABSTRACTION Provider, Abstract [...]
--- OUTSIDE RECORDS SUMMARY | 2024-10-07 14:25 | XMS_ITS | Encounter Summary ---
Author Organization [facility] Address [address] [place] [address] Care Team Providers Care Installation Technician Name Role Phone Unavailable Primary Care Provider Unavailabl e Encounter Details Date Type Department Care Team (Late st Contact Info) Description 12/19/1998 Outpatient Historical [facility], & Cheo [place] MD [address] [place] [address] [place] [address] Social History Tobacco Use Types Packs/Day Years [...]
--- OUTSIDE RECORDS SUMMARY | 2024-10-07 14:25 | XMS_ITS | Encounter Summary ---
Author Organization [facility] Address [address] [place] [address] Care Team Providers Care Freight Car Loader Name Role Phone Unavailable Primary Care Provider [...]
--- OUTSIDE RECORDS SUMMARY | 2024-10-07 14:25 | XMS_ITS | Encounter Summary ---
Author Organization [facility] Address [address] [place] [address] Phone Care Team Providers Care Laborer Vegetable Farm Name Role Phone Nader, Vitaly Ravi MD Primary Care Provider [phone]- [phone] Jessica Leonard MD Unavailable [phone] -[phone] Reason for Visit * Reason Comments Pelvic Pain Encounter Details Date Type Department Care Team (Late st Contact Info) Description 11/08/2017 10:00 AM CUPOLA TAPPER HELPER Office Visit [facility] [address] [place] [address] Jessica Leonard MD [address] [address] Pelvic pain in female (Primary Dx); Dysuria; Urinary frequency; Dysmenorrhea; Screen for STD (sexually transmitted disease); Acute vaginitis Social History Tobacco Use Types Packs/Day Years Used Date Smoking Tobacco: Never Smokeless Tobacco: Never Tobacco Cessation:Counseling Given: Yes Alcohol Use Standard Drinks/Week Comments No 0 (1 standard drink = 0.6 oz pur e alcohol) Comments No Sex and Gender Information Value Date Recorded Sex Assigned at Not on file Legal Sex Female 1:41 AM CUPOLA TAPPER HELPER Gender Identity Not on file Sexual Orientation Not on file 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 file Not on file documented as of this encounter Last Filed Vital Signs Vital Sign Reading Time Taken Comments Blood Pressure 90/60 11/08/2017 10:09 AM CUPOLA TAPPER HELPER Pulse 82 11/08/2017 10:09 AM CUPOLA TAPPER HELPER Temperature - - Respiratory Rate 16 11/08/2017 10:09 AM CUPOLA TAPPER HELPER Oxygen Saturation 98% 11/08/2017 10:09 AM CUPOLA TAPPER HELPER Inhaled Oxygen Concentration - - Weight 74.8 kg (165 lb) 11/08/2017 10:09 AM CUPOLA TAPPER HELPER Height - - Body Mass Index 26.63 07/12/2017 3:53 PM CDT documented in this encounter Progress Notes * Jessica Leonard - 11/08/2017 10:00 AM CST Images from the original note were not included. Assessment: ICD-9-CM ICD-10-CM 1. Pelvic pain in female 625.9 R10.2 2. Dysuria 788.1 R30.0 3. Urinary frequency 788.41 R35.0 4. Dysmenorrhea 625.3 N94.6 Plan: ?? UA and urine C&S ordered. ?? Sureswab VG Plus obtained. ?? Pelvic ultrasound ordered. HPI: Anahi is a 31 y.o. MWF , who presents for the above concerns. Her last two periods were really light but very painful On the 5th and 7th of this month, she had UTI symptoms, including dysuria and frequency. She is now having more diffuse pelvic pain,mainly in her LLQ, with dyspareunia in thesame area. She does have a Mirena IUD, and is worried about PID, even though she does feel she has been exposed to STI's. She has random cramps, and some vaginal discharge. 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 Smoking status: Never Smoker ??? Smokeless tobacco: Never Used ??? Alcohol use No ??? Drug use: No ??? Sexual activity: Yes Partners: Male control/ protection: IUD Other Topics Concern ??? Not on file Social History Narrative Has 2 sons and [...] Disp: 1 Device, Rfl: 0 ??? vit no.650-ivin-olakc ( ONE DAILY) 27 mg iron- 800 mcg tablet, take 1 tablet by oral route every day, Disp: 0, Rfl: 0 Review of Systems: The patient-completed Review of Systems was reviewed and was scanned as an attachment to this encounter. Physical Exam: Patient's last menstrual period was 10/25/2017 (exact date). Wt Readings from Last 3 Encounters: 11/08/17 165 lb (74.8 kg) 07/12/17 169 lb (76.7 kg) 12/09/16 179 lb (81.2 kg) Body mass index is 26.63 kg/m??. Vitals: 11/08/17 1009 BP: 90/60 Pulse: 82 Resp: 16 SpO2: 98% Weight: 165 lb (74.8 kg) General: WNWD female in NAD. Mental status: Alert and oriented X 3, with calm, cooperative affect. HEENT: Normocephalic. Abdomen: Soft, non-distended. No masses, tenderness, or hernias. Skin: Warm and dry, without abnormal rashes or suspicious moles on examined skin. Pelvic exam: External genitalia: Normale female. No external lesions. Anus and perineum: Intact. No visible lesions. Urethral meatus: [place], without prolapse or lesions. Vagina: [place], well-rugated. Mucusy white discharge. Cervix: [place]; os closed. No visible lesions. IUD strings noted, ~3-4 cm in length. Uterus: No palpable abnormalities. LLQ tenderness to palpation of the uterus and left adnexa. Adnexa: No palpable masses or tenderness in the right side. Left adnexa tender. Bladder and urethra: Nontender, without masses. Jessica Leonard MD LA TAPPER HELPER documented in this encounter Plan of Treatment Not on file documented as of this encounter Procedures Procedure Name Priority Date/Time Associated Diagnosis Comments SURESWAB(R), VAGINOSIS/VAGINITIS PLUS Routine 11/08/2017 11:35 AM CUPOLA TAPPER HELPER Screen for STD (sexually transmitted disease) Acute vaginitis documented in this encounter Results * SURESWAB(R), VAGINOSIS/VAGINITIS PLUS (11/08/2017 11:35 AM CUPOLA TAPPER HELPER) C. trachomatis RNA Not detected Not detected [facility] N. gonorrhoeae RNA Not detected Not detected [facility] Comment: This test was performed using the APTIMA COMBO2 Assay (GEN-PROBE). BV category NOT SUPPORTIVE See Below [facility] Comment:Reference Range: Not Supportive Lactobacillus species 7.5 Log cells/mL [facility] Atopobium vaginae Not detected Log cells/mL [facility] Megasphaera species Not detected Log cells/mL [facility] Gardnerella vaginalis qn Not detected Log cells/mL [facility] Trichomonas vaginalis Not detected Not detected [facility] C. albicans DNA Not detected Not detected [facility] Arti glabrata, DNA Not detected Not detected [facility] C. tropicalis, DNA Not detected Not detected [facility] C. parapsilosis, DNA Not detected Not detected [facility] Comment: NOT SUPPORTIVE of BV: The pattern of results is not supportive of a diagnosis of BV: 1) Presence of Lactobacillus spp., G. vaginalis levels less than 6.0 log cells/mL, and absence of A. vaginae and Megasphaera spp; or 2) Absence of all targeted organisms; or 3) Absence of Lactobacillus spp. plus G. vaginalis detected at levels less than 6.0 log cells/mL and absence of A. vaginae and Megasphaera spp. EQUIVOCAL for BV: The pattern of results is neither supportive nor not supportive of a diagnosis of BV. The patient may be in transition into or out of BV: Presence of Lactobacillus spp. plus G. vaginalis (greater or equal to 6.0 log cells/mL) and/or one of the other BV-associated pathogens SUPPORTIVE of BV: The pattern of results is supportive of a diagnosis of BV: ??Absence of Lactobacillus spp. and presence of G. vaginalis greater than or equal to 6.0 log cells/mL and/or one or both of the other BV-associated pathogens. Concentration for Lactobacilli (L. acidophilus/crispatus, L. jensenii) are collectively reported under the term 'Lactobacillus spp.', as these species are among the peroxide producing Lactobacilli thought to be protective against bacterial vaginosis. Atopobium vaginae, Megasphaera spp., and Gardnerella (greater than 6.0 log cells/mL) have been associated with vaginosis when present in the absence of peroxidase producing Lactobacilli. This test was developed and its analytical performance characteristics have been determined by [facility]. It has not been cleared or approved by the US Food and Drug Administration. This assay has been validated pursuant to the CLIA regulations and is used for clinical purposes. For more information on this test, go to: http://education.[employer].Geev.Me Tech/faq/Trichomonastma Vaginal 11/08/2017 11:3 5 AM CUPOLA TAPPER HELPER 11/09/2017 2:30 AM CUPOLA TAPPER HELPER Narrative Resulting Agency Comment Performing Organization Information: ?Site ID: [id number] ?Name: [facility] ?Address: [address] [place] [address] ?Director: Joshua Sanches M.D., Ph.D Jessica Leonard MD LAB BLOOD ORDERABLE S Final Result [facility] [place], [place] documented in this encounter Visit Diagnoses Diagnosis Pelvic pain in female- Primary Unspecified symptom associated with female genital organs Dysuria Urinary frequency Dysmenorrhea Screen for STD (sexually transmitted disease) Screening examination for venereal disease Acute vaginitis Unspecified vaginitis and vulvovaginitis documented in this encounter Care Teams Laborer Vegetable Farm Relationship Specialty Start Date End Date Vitaly Doe MD [address] [place] [address] PCP - General 12/24/16 Jessica Leonard MD [address] [place] [address] Obstetrics and Gynecology 07/15/17 documented as of this encounter
--- OUTSIDE RECORDS SUMMARY | 2024-10-07 14:25 | XMS_ITS | Encounter Summary ---
Author Organization [facility] Address [address] [place] [address] Phone Care Team Providers Care Plug Saw Operator Name Role Phone Vitaly Doe MD Primary Care Provider +1- [phone] Jessica Leonard MD Unavailable [phone] [phone] Reason for Referral * Diagnostic Imaging (Routine) - Closed Specialty Diagnoses / Procedures Referred By Contac t Referred To Contact Diagnoses Pelvic pain in female Procedures US Pelvis Complete Jessica Leonard MD Phone: tel: fax: Referral ID Status Reason Start Date Expiration Date Visits Re quested Visits Authorized [id number] Closed 11/08/2017 05/07/2018 1 1 Reason for Visit * Diagnostic Imaging (Routine) - Closed Specialty Diagnoses / Procedures Referred By Contac t Referred To Contact Diagnoses Pelvic pain in female Procedures US Pelvis Complete Jessica Leonard MD Phone: tel: fax: Referral ID Status Reason Start Date Expiration Date Visits Re quested Visits Authorized [id number] Closed 11/08/2017 05/07/2018 1 1 Encounter Details Date Type Department Care Team (Latest Contact Info) Description 11/09/2017 10:33 AM [facility] - 11/09/2017 11:59 PM [facility] Hospital Encounter [facility] [address] [place] [address] Pelvic pain in female Discharge [...] on file Legal Sex Female 1:41 AM [facility] Gender Identity Not on file Sexual Orientation Not on file 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 file Not on file documented as of this encounter Medications at Time of Discharge vit no.178-rfjo-eyujd ( ONE DAILY) 27 mg iron- 800 [...] Name Priority Date/Time Associated Diagnosis Comments US PELVIS COMPLETE Schedule Routine, Read Routine (OP Routine) 11/09/2017 11:04 AM [facility] Pelvic pain in female documented in this encounter Results * US Pelvis Complete (11/09/2017 11:04 AM [facility]) Anatomical Region Laterality Modality Pelvis N/A Ultrasound Narrative 11/10/2017 3:59 PM [facility] DIGITAL TRANSABDOMINAL PELVIC ULTRASOUND Real Time high resolution transabdominal pelvic ultrasound reveals the uterus to be mildly enlarged measuring 8.3 x 3.6 x 4.7 cm. ??The endometrial echo is normal measuring 3.5 mm. There is an intrauterine contraceptive device in the endometrial canal. IMPRESSION Mild uterine enlargement. Normal endometrial echo. Intrauterine contraceptive device in good position. Jessica Leonard MD IMG US PROCEDURES F inal Result documented in this encounter Visit Diagnoses Diagnosis Pelvic pain in female Unspecified symptom associated with female genital organs documented in this encounter Care Teams Plug Saw Operator Relationship Specialty Start Date End Date Vitaly Doe MD [address] [place] [address] PCP - General 12/24/16 Jessica Leonard MD [address] [place] [address] Obstetrics and Gynecology 07/15/17 documented as of this encounter
--- OUTSIDE RECORDS SUMMARY | 2024-10-07 14:25 | XMS_ITS | Clinical Summary ---
Author Organization [facility] [address] Address [address] [place] [address] Phone Care Team Providers Care Welfare Visitor Name Role Phone Vitaly Doe MD Primary Care Provider [phone]- [phone] Jessica Leonard MD Unavailable [phone] [phone] Allergies No known active allergies Medications vit no.528-bawu-qxh ic ( ONE DAILY) 27 mg iron- 800 mcg tablet take 1 tablet by oral route every day 0 0 5 Active levonorgestrel (LILETTA) 19.5 mcg/24 hour (4 years) IUD by intrauterine route once for 1 dose. 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; ASCUS, HPV (+) in 2010 Family History Medical History Relation Name Comments Diabetes Father Heart attack Father Hyperlipidemia Father Hypertension Father Heart attack Father's Brother 1 Stroke Father's Brother 2 CVA w/bra in tumor Brain cancer Father's Brother 3 COD Heart attack Maternal Grandfather Diabetes Maternal Grandmother Hyperlipidemia Maternal Grandmother Hypertension Maternal Grandmother Breast cancer Mother Hypertension Mother Brain cancer Mother's Brother COD Cancer Mother's Sister chondrosarco ma Other Other 1 hypospadias in nephew Other Other 2 anencephaly in sister's child Heart attack Paternal Grandfather COD at age 60 Diabetes Paternal Grandmother Heart attack Paternal Grandmother COD at age 50 Hyperlipidemia Paternal Grandmother Hypertension Paternal Grandmother Relation Name Status Comments Father Father's Brother 1 Father's Brother 2 Father's Brother 3 Maternal Grandfather Maternal Grandmother Mother Mother's Brother Mother's Sister Other 1 Other 2 Paternal Grandfather (Age 60) Paternal Grandmother (Age 50) Social History Tobacco Use Types Packs/Day Years Used Date Smoking Tobacco: Never Smokeless Tobacco: Never Tobacco Cessation:Counseling Given: Yes Alcohol Use Standard Drinks/Week Comments No 0 (1 standard drink = 0.6 oz pur e alcohol) Comments No Sex and Gender Information Value Date Recorded Sex Assigned at Not on file Legal Sex Female 1:41 AM SALES ORDER CLERK Gender Identity Not on file Sexual Orientation Not on file 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 Not on file Obstetrics History Para Term AB IAB SAB Ectopic Multiple Livin g Live Births 3 3 3 0 0 0 0 0 0 3 3 Date Outcome GA Total Labor Labor/2nd/3rd Weight Sex Type Anes PTL Soledad A1 A5 Name Clin Term Term Term Last Filed Vital Signs Vital Sign Reading Time Taken Comments Blood Pressure 122/78 07/18/2018 1:58 PM CDT Pulse 82 11/08/2017 10:09 AM SALES ORDER CLERK Temperature - - Respiratory Rate 16 11/08/2017 10:09 AM SALES ORDER CLERK Oxygen Saturation 98% 11/08/2017 10:09 AM SALES ORDER CLERK Inhaled Oxygen Concentration - - Weight 73.5 kg (162 lb) 07/18/2018 1:58 PM CDT Height 168.9 cm (5' 6.5 ) 07/18/2018 1:58 PM CDT Body Mass Index 25.76 07/18/2018 1:58 PM CDT Plan of Treatment Not on file Insurance [facility] [place] [address] [facility] [place] [address] Care Teams Welfare Visitor Relationship Specialty Start Date End Date Vitaly Doe MD [address] [place] [address] PCP - General 12/24/16 Jessica Leonard MD [address] [place] [address] Obstetrics and Gynecology 07/15/17
--- OUTSIDE RECORDS SUMMARY | 2024-10-07 14:25 | XMS_ITS | Encounter Summary ---
Author Organization [facility] Address [address] Attn: Epic Prelude ADT RADHA DANIEL [place] [address] Care Team Providers Care Credit Cashier Name Role Phone Unavailable Primary Care Provider Unavailabl e Encounter Details Date Type Department Care Team (Latest Contact Info) Description 05/15/2024 Travel Social History Tobacco Use Types Packs/Day Years [...]
--- OUTSIDE RECORDS SUMMARY | 2024-10-07 14:25 | XMS_ITS | Encounter Summary ---
Author Organization [facility] Address [address] [place] [address] Care Team Providers Care Bag Tester Name Role Phone Vitaly Doe MD Primary Care Provider +1- [phone] Jessica Leonard MD Unavailable +1 -[phone] Encounter Details Date Type Department Care Team (Late st Contact Info) Description 07/18/2018 Orders Only [facility] [address] [place] [address] Jessica Leonard MD [address] [address] Social History Tobacco Use Types Packs/Day Years Used Date Smoking Tobacco: Never Smokeless Tobacco: Never Alcohol Use Standard Drinks/Week Comments No 0 (1 standard drink = 0.6 oz pur e alcohol) Comments No Sex and Gender Information Value Date Recorded Sex Assigned at Not on file Legal Sex Female 1:41 AM MILITARY SOURCE OPERATIONS SPECIALIST Gender Identity Not on file Sexual Orientation Not on file 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 documented in this encounter Plan of Treatment Not on file documented as of this encounter Procedures Procedure Name Priority Date/Time Associated Diagnosis Comments THINPREP IMAGING PAP REFLEX HPV MRNA E6/E7 Routine 07/18/2018 3:51 PM CDT documented in this encounter Results * ThinPrep Imaging Pap Reflex HPV mRNA E6/E7 (07/18/2018 3:51 PM CDT) Report status CANCELED [facility] Comment:Result canceled by t he ancillary CLINICAL INFORMATION: [facility] Comment:Routine exam LMP 07/13/2018 [facility] Previous Pap NONE GIVEN [facility] Prev. Bx NONE GIVEN [facility] SOURCE: [facility] Comment:Cervix, Endocervix Pap, specimen adequacy [facility] Comment: Satisfactory for evaluation. Endocervical/transformation zone component present. Pap, general categorization [facility]ELED [facility] Comment:Result canceled by t he ancillary HPV interp [facility] Comment:Negative for intraep ithelial lesion or malignancy. Infection: CANCELED [facility] Comment:Result canceled by t he ancillary COMMENTS [facility] Comment: This Pap test has been evaluated with computer assisted technology. Associate Vice President [facility] - Comment: MLO, CT(ASCP) CT screening location: [place] [address] [address] [place] [address] Review drawing frame tender [facility] Comment:Result canceled by t he ancillary Pathologist [facility]CELED [facility] Comment:Result canceled by t he ancillary Comment [facility] Comment: EXPLANATORY NOTE: The Pap is a screening test for cervical cancer. It is not a diagnostic test and is subject to false negative and false positive results. It is most reliable when a satisfactory sample, regularly obtained, is submitted with relevant clinical findings and history, and when the Pap result is evaluated along with historic and current clinical information. 07/18/2018 3:51 PM CDT 07/19/2018 5:48 AM CDT Narrative Resulting Agency Comment Performing Organization Information: ?Site ID: ?Name: [facility] ?Address: [facility] [address] [place] [address] ?Director: Arcenio Laureano Jessica Leonard MD LAB PATHOLOGY ORDER RANJITH Final Result [facility] [place], [place] documented in this encounter Visit Diagnoses Not on filedocumented in this encounter Care Teams Bag Tester Relationship Specialty Start Date End Date Vitaly Doe MD [address] [place] [address] PCP - General 12/24/16 Jessica Leonard MD [address] [place] [address] Obstetrics and Gynecology 07/15/17 documented as of this encounter
--- OUTSIDE RECORDS SUMMARY | 2024-10-07 14:25 | XMS_ITS | Encounter Summary ---
Author Organization [facility] Address [address] [place] [address] Care Team Providers Care Pupil Personnel Services Director Name Role Phone Unavailable Primary Care Provider Unavailabl e Reason for Visit * Reason Comments Consult * Eval and Treat (2-4 Days) - Closed Specialty Diagnoses / Procedures Referred By Contac t Referred To Contact Perinatology Diagnoses AMA (advanced maternal age) multigravida 35+ Abnormal TSH Sharon Johnson MD [address] [address] [facility] [place] [address] [place] [address] Referral ID Status Reason Start Date Expiration Date Visits Requested Visits Authorized [id number] Closed Performing Department to Schedule 04/24/2024 05/25/2025 1 1 Encounter Details Date Type Department Care Team (Late st Contact Info) Description 05/15/2024 10:00 AM CDT Video Visit [facility] [address] [facility] [facility] [address] [place] [place] [address] Larissa Castanon MD [address] [place] [address] Thyroid function test abnormal (Primary Dx); Multigravida of advanced maternal age in second trimester; Interstitial cystitis Social History Tobacco Use Types Packs/Day Years [...] Mass Index 31.8 05/15/2024 10:02 AM CDT documented in this encounter Progress Notes * Larissa Castanon MD - 05/15/2024 10:00 AM CDT Anahi Duenas [id number] 38 y.o. [facility] Maternal Medicine Outpatient New Consult Chief Complaint: complicated by: AMA Abnormal thyroid testing Hx of GDMA1 Interstitial cystitis Consult requested by: Dr. Johnson HPI: Anahi Duenas is a 38 y.o. at 19w2d seen today in consultation due to the above concerns. She reports no history of abnormal thyroid testing and thinks her TSH was drawn as a routine lab in March. She has had fatigue/low energy during this , but also reports feeling hot and occasional palpitations or heart racing. Labs: 04/20 - free T4 0.81 (normal 0.82-1.77), TSH 0.385 03/27 - TSH 0.45 Anahi also reports a history of interstitial cystitis. Her symptoms normally improve with , however she has had more flares recently that she thinks are due to stress. She usually manages well with diet. Her past medical, surgical, family, and social history was reviewed and was otherwise unremarkable. Physical Exam Ht 5' 6 (1.676 m) Wt 89.4 kg (197 lb) BMI 31.80 kg/m?? General: appearance: alert, in no distress Lungs: normal respiratory effort, negative for coughing Psychiatric: Appropriate mood and affect Obstetrical History OB History Para Term AB Living 5 4 4 4 SAB IAB Ectopic Multiple Live Births 4 # Outcome Date GA Lbr Ankit/2nd Weight Sex Type Anes PTL Lv 5 Current 4 Term 2020 39w0d 3629 g (8 lb) M Vag-Spont PAYTON Complications: Gestational diabetes mellitus, class A1 3 Term 2016 40w0d M Vag-Spont PAYTON 2 Term 2011 40w0d M Vag-Spont PAYTON 1 Term 2009 42w0d 3175 g (7 lb) F Vag-Spont PAYTON Medical History No past medical history on file. Surgical History No past surgical history on file. Family History Denies family history of chromosome problems or defects. Denies parents, brothers or sisters with bleeding disorders or history of blood clots No family history on file. Social History Social History Tobacco Use Smoking status: Never Passive exposure: Never Smokeless tobacco: Never Vaping Use Vaping status: Never Used Substance Use Topics Alcohol use: Never Drug use: Never Labs Reviewed In media Imaging No results found for this or any previous visit. Medications Current Outpatient Medications Medication Sig Dispense Refill vits15/iron/folic/dss ( VIT 87-SGUF-GVWEQ-DSS ORAL) Take by mouth. ergocalciferol, vitamin D2, (VITAMIN D ORAL) Take 2,000 Units by mouth daily. aspirin (ECOTRIN EC) 81 mg Tablet, Delayed Release (E.C.) Take 81 mg by mouth daily. No current facility-administered medications for this visit. Assessment: 38 y.o. year old with [place] intrauterine at 19w2d complicated by: Summary of Counseling: - Hypothyroidism can have adverse effects on outcomes, depending upon the severity of thebiochemical abnormalities. Poorly controlled hypothyroidism has been associated with an increased risk of several complications, including: preeclampsia and gestational hypertension, placental abruption, nonreassuring heart rate tracing, peterm delivery, including very delivery (before 32 weeks), increased rate of section, morbidity and mortality, neuropsychological and cognitive impairment and hemorrhage. - To meet the increased metabolic needs during a normal , there are changes in thyroid physiology that are reflected in altered thyroid function tests. Because of the changes in thyroid physiology during normal , thyroid function tests should be interpreted using trimester-specific TSH and T4 reference ranges for women. The upper limit of normal for TSH in the first trimester of is approximately 2.5 mU/L (3.0 mU/L in the second and third trimesters) rather than 4.5 to 5.0 mU/L used by most laboratories. For those who have not yet reached euthyroid status, we recommend serum TSH values repeated at 4 week intervals after changes in medication. We also stated that an increase in thyroid requirements as seen in approximately 30% of patient???s during the second half of . Immediately after delivery, most patients should return to their prepregnancy dosage. - I discussed with Anahi that her thyroid labs are not typical for primary hypothyroidism in that her TSH and free T4 are both low. This could be a result of central hypothyroidism with possible pituitary dysfunction. I recommended repeating her thyroid labs, and if the trend is still present, would start thyroid hormone supplementation (with levothyroxine) and refer to endocrinology for further workup. Plan/Recommendations: 1. Concerns Suspected anomalies: n/a Estimated weight: n/a Genetics: declined NIPT Recommended follow up ultrasounds: - anatomic survey at 20 weeks (scheduled 05/24) - Follow up US TBD - if not euthyroid by 28 weeks, plan for serial growth US Recommended testing: - TBD pending thyroid status Delivery planning - TBD, no indication for early delivery at this time 2. Abnormal thyroid testing - TSH and free T4 low (TSH 0.385, fT4 0.81) - Repeat labs ordered today - If free T4 remains low, plan to initiate levothyroxine and recheck labs in 1 month - TSH and free T4 should be drawn monthly until the patient is euthyroid, then once every trimester. - Goal of treatment is to keep TSH between 0.1-2.5, free T4 in high-normal range, and total T4 at 1.5x the normal level in a non- patient. - If TSH and free T4 remain low, plan for Endocrinology consult - surveillance plan pending thyroid labs 3. AMA - Declined NIPT - surveillance as above 4. IC - Continue dietary management Disposition - Continue care and delivery with Dr. Johnson - Follow up with Ramiro will be determined after thyroid labs result Thank you for the opportunity to participate in the care of this patient. A copy of this note was sent to the referring physician. Complexity of medical decision making: Moderate due to with the additional complications mentioned above. On the day of the visit, I spent 60 (1 hr) minutes providing care to this patient including Preparing to see the patient, Obtaining and/or reviewing separately obtained history, Performing a medically appropriate examination and/or evaluation, Counseling and educating the patient/family/caregiver, O rdering medications, tests or procedures, Documenting clinical information in the medical record, Referring and communication with other health pediatric care coordinator (not separately reported), Independently interpreting results and communicating results to the patient/family/caregiver (not separately reported), and Care coordination (not separately reported). Thank you for the kind referral. Larissa Castanon MD [facility] Maternal Medicine Patient's identity confirmed yes Patient gave verbal consent to have these services billed to their insurance and expressed understanding that co-insurance and deductible may apply: yes This encounter was completed via two-way synchronous audio and video communication. documented in this encounter Plan of Treatment Scheduled Orders Name Type Priority Associated Diagnoses Orde r Schedule TSH REFLEXIVE Lab Routine Thyroid function test abnormal Expected: 05/15/2024, Expires: 05/15/2025 documented as of this encounter Procedures Procedure Name Priority Date/Time Associated Diagnosis Comments TSH Routine 05/16/2024 2:57 PM CDT T4 FREE Routine 05/16/2024 2:57 PM CDT Thyroid function test abnormal documented in this encounter Results * TSH (05/16/2024 2:57 PM CDT) TSH 0.66 mIU/L [facility] Comment: ?Reference Range ?> or = 20 Years ??0.40-4.50 ? Ranges ?First trimester ?0.26-2.66 ?Second trimester ?? 0.55-2.73 ?Third trimester ?0.43-2.91 FASTING:NO AN UPDATE OR CORRECTION HAS BEEN MADE TO NAME FASTING: NO Test Performed at: [facility] [address] [place], [place] ??[address] Arcenio Laureano MD 05/16/2024 2:57 PM CDT 05/16/2024 10:20 PM CDT Larissa Castanon MD CHEMISTRY ORDER RANJITH [facility] [phone] [facility] [address] [place] [address] * T4 FREE (05/16/2024 2:57 PM CDT) T4 FREE 0.9 0.8 - 1.8 ng/dL [facility] Comment: FASTING:NO AN UPDATE OR CORRECTION HAS BEEN MADE TO NAME FASTING: NO Test Performed at: [facility] [place] [address] [place], [place] ??[address] Arcenio Laureano Blood 05/16/2024 2:57 PM CDT 05/16/2024 10:20 PM CDT Larissa Castanon MD CHEMISTRY ORDER RANJITH Performing Organization Address City/[facility]/ZIP [facility] [facility] Phone Number [facility] [phone] [place] [address] [place] [address] documented in this encounter Visit Diagnoses Diagnosis Thyroid function test abnormal- Primary Nonspecific abnormal results of thyroid function study Multigravida of advanced maternal age in second trimester Interstitial cystitis Chronic interstitial cystitis documented in this encounter
--- OUTSIDE RECORDS SUMMARY | 2024-10-07 14:26 | XMS_ITS | Encounter Summary ---
Author Organization [facility] Healthcare Address [address] [place] [address] Care Team Providers Care Metal Welder Name Role Phone Unavailable Primary Care Provider Unavailabl e Encounter Details Date Type Department Care Team (Late st Contact Info) Description 01/15/2010 9:42 PM CDT - 01/15/2010 10:48 PM CDT Hospital Encounter [facility] Del Gallagher MD [address] [facility] [address] [address] [place] [address] Sprain of foot; Other overexertion and strenuous and repetitive movements or loads; Place of occurrence, home; Sprain of ankle; Accidental fall on or from other stairs or steps Social History Tobacco Use Types Packs/Day Years Used Date Smoking Tobacco: Never Assessed Comments Unknown Sex and Gender Information Value Date Recorded Sex Assigned at Not on file 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
--- OUTSIDE RECORDS SUMMARY | 2024-10-07 14:26 | XMS_ITS | Encounter Summary ---
Author Organization [facility] Healthcare Address [address] [place] [address] Care Team Providers Care Router Setter Name Role Phone Vitaly Doe MD Primary Care Provider [phone]- [phone] Encounter Details Date Type Department Care Team (Late st Contact Info) Description 02/17/2016 1:34 PM CDT - 02/17/2016 11:59 PM CDT Hospital Encounter [facility] Leonard, Jessica Velzaquez MD [address] [place] [address] Encounter for supervision of other normal , third trimester; 35 weeks gestation of Social History Tobacco Use Types Packs/Day Years Used Date Smoking Tobacco: Never Alcohol Use Standard Drinks/Week Comments No 0 (1 standard drink = 0.6 oz pur e alcohol) Comments Unknown Sex and Gender Information Value Date Recorded Sex Assigned at Not on file 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 Gender Identity Not on file Sexual Orientation Not on file documented as of this encounter Medications at Time of Discharge vit no.229-mdqe-eimsp ( ONE DAILY) 27 mg iron- 800 mcg tablet take 1 tablet by oral route every day 0 0 08/08/2015 documented as of this encounter Plan of Treatment Not on file documented as of this encounter Procedures Procedure Name Priority Date/Time Associated Diagnosis Comments STREPTOCOCCUS MICROBIOLOGY, GENITAL Routine 02/17/2016 12:00 AM CDT documented in this encounter Results * Streptococcus Microbiology, Genital (02/17/2016 12:00 AM CDT) 02/17/2016 Narrative HISTORICAL RESULTS - 02/21/2016 5:06 PM CDT [facility] ?Patient Name: ?SEVER, ANAHI J ?Med. Rec#: ?? [id number] ?Pt. Acct.#: ??[id number] ?Birthdate: ?? 1985 ?Age / Sex: ?? 30Y / F ?Location: ?[facility] (Laborato ?Admit Date: ??02/17/2016 ?Discharge Date: ? 02/17/2016 ?Doctor: ?Jessica Leonard MD ?Patient Type: ? Ref Lab - Insuran Culture, Strep - Genital ? Collected: 02/17/2016 13:36 Specimen: Swab ?? Specimen Source: RECTO/VAG Status: Final ??Last Update: 02/21/2016 13:08 Culture Result ?? No Group B beta-hemolytic Streptococcus isolated us Historical Provider LAB MICROBIOLOGY - GENERA L ORDERABLES Final Result HISTORICAL RESULTS documented in this encounter Visit Diagnoses Diagnosis Encounter for supervision of other normal , third trimester 35 weeks gestation of documented in this encounter Care Teams Router Setter Relationship Specialty Start Date End Date Vitaly Doe MD [address] [address] PCP - General 07/04/12 12/23/16 documented as of this encounter
--- OUTSIDE RECORDS SUMMARY | 2024-10-07 14:26 | XMS_ITS | Encounter Summary ---
Author Organization [facility] Address [address] [place] [address] Care Team Providers Care Microbiology Lab Manager Name Role Phone Vitaly Doe MD Primary Care Provider [phone]- [phone] Encounter Details Date Type Department Care Team (Late st Contact Info) Description 03/18/2014 7:16 PM CDT - 03/18/2014 11:59 PM CDT Hospital Encounter [facility] Jessica Garcia MD [address] [place] [address] Screening for malignant neoplasm of cervix Social History Tobacco Use Types Packs/Day Years Used Date Smoking Tobacco: Never Alcohol Use Standard Drinks/Week Comments No 0 (1 standard drink = 0.6 oz pur e alcohol) Comments Unknown Sex and Gender Information Value Date Recorded Sex Assigned at Not on file 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 us Historical Provider LAB CYTOLOGY ORDERABLES F inal Result documented in this encounter Visit Diagnoses Diagnosis Screening for malignant neoplasm of cervix Screening for malignant neoplasm of the cervix documented in this encounter Care Teams Microbiology Lab Manager Relationship Specialty Start Date End Date Vitaly Doe MD [address] [place] [address] PCP - General 07/04/12 12/23/16 documented as of this encounter
--- OUTSIDE RECORDS SUMMARY | 2024-10-07 14:26 | XMS_ITS | Encounter Summary ---
Author Organization [facility] Address [address] [place] [address] Care Team Providers Care Compliance Counsel Name Role Phone Vitaly Doe MD Primary Care Provider [phone]- [phone] Encounter Details Date Type Department Care Team (Late st Contact Info) Description 04/21/2015 6:28 PM CDT - 04/21/2015 11:59 PM CDT Hospital Encounter [facility] Jessica Garcia MD [address] [place] [address] Social History Tobacco Use Types Packs/Day Years Used Date Smoking Tobacco: Never Alcohol Use Standard Drinks/Week Comments No 0 (1 standard drink = 0.6 oz pur e alcohol) Comments Unknown Sex and Gender Information Value Date Recorded Sex Assigned at Not on file 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 Historical Provider LAB BLOOD ORDERABLES Janett l Result * LAB RESULTS PERFORMED BY [facility] (04/21/2015) Narrative 04/21/2015 Ordered by an unspecified provider. us Historical Provider LAB BLOOD ORDERABLES Janett l Result documented in this encounter Visit Diagnoses Not on filedocumented in this encounter Care Teams Compliance Counsel Relationship Specialty Start Date End Date Vitaly Doe MD [address] [place] [address] [place] [id number] PCP - General 07/04/12 12/23/16 documented as of this encounter
== END 2024-10-03 11:37 | disposition home or self-care (01) | DRG 807 ==
LOC: ANHLDR 15:20 → ANHOB2 19:07
PROVIDERS: Admitting Provider Obstetrics & Gynecology Gynecology; Visit Provider Obstetrics & Gynecology Gynecology
DX: O24.429 Gestational diabetes mellitus in childbirth, unspecified control (principal); Z37.0 Single live birth; Z3A.39 39 weeks gestation of pregnancy
CPT/HCPCS: 36415; 82948; 85014; 85018; 85025; 86592; 86703; 86850; 86900; 86901; A9270; G0432; J2590; J2795; J7120